=== PATIENT | male | born 1995 | race Caucasian/White ===

== ENCOUNTER 2024-04-07 18:14 | Emergency (ER) | payer SELFPAY ==
--- NOTE | ~2024-04-07 | CT_ITS ---
CT of the Abdomen and Pelvis: Indication: Abdominal pain Technique: 2.5 mm axial scans were obtained through the abdomen and pelvis following intravenous adm inistration of 100 cc of Omnipaque 350. Dose reduction technique was used on this scan by utilizing a utomated exposure control and iterative reconstruction technique. The dose-length product (DLP) was 2 96.87 mGy-cm. Findings: Scans through the lung bases demonstrate 4 mm right lower lobe nodule along the fissure (a xial image 7).. The liver, spleen, pancreas, gallbladder, adrenals and kidneys are within normal limits. No evidence of aortic aneurysm. No lymphadenopathy. No bowel obstruction or bowel wall thickening. There is no evidence to suggest acute appendicitis. Images through the pelvis were performed. Urinary bladder unremarkable. No pelvic mass seen. No ascit es. Impression: No acute abnormality. 4 mm right lower lobe pulmonary nodule. According to Fleischner Society criteria, for a low-risk michelle ent, no further follow-up required. For a high-risk patient, consider 12 month follow-up CT. Reviewed, dictated and finalized at [facility]. Impression: No acute abnormality. 4 mm right lower lobe pulmonary nodule. According to Fleischner Society criteri a, for a low-risk patient, no further follow-up required. For a high-risk patie nt, consider 12 month follow-up CT.
[2024-04-07 18:42] VITALS: BP 115/70; PULSE 86; RESP 18; TEMP 37.1; O2SAT 97
[2024-04-07 19:11] LABS: Basophils Percent Auto 0.5 % (0.2-1.2); Eosinophils Absolute Auto 0.1 K/mm3 (0-0.3); Hematocrit 43.6 % (42.0-52.0); Hemoglobin 15.5 g/dL (14.0-18.0); Immature Granulocyte Absolute 0.02 K/mm3 (0.00-0.031); Immature Granulocyte Percent A 0.4 % (0-0.5); Lymphocytes Absolute Auto 1.06 K/mm3 (0.9-3.2); Lymphocytes Percent Auto 18.9 % (18.3-44.2); Mean Corpuscular HGB Conc 35.6 g/dl (32-36); Mean Corpuscular Hemoglobin 32.3 pg (26-34); Mean Corpuscular Volume 90.8 fl (80-100); Mean Platelet Volume 9.9 fl (7.4-10.4); Monocytes Absolute Auto 0.9 K/mm3 (0.1-0.6); Monocytes Percent Auto 16.4 % (2.6-8.5); Neutrophils Absolute Auto 3.5 K/mm3 (1.3-6.7); Neutrophils Percent Auto 61.8 % (45.5-73.1); Platelet Count Result 141 k/mm3 (150-375); Red Cell Distribution Width 12.5 % (11.5-14.5); White Blood Count 5.6 K/mm3 (4.5-10.0)
[2024-04-07 19:19] LABS: Lactic Acid Reflex 0.7 mmol/L (0.7-2.0)
[2024-04-07 19:41] LABS: Alanine Aminotransferase 122 U/L (6-50); Albumin Level 4.1 g/dL (3.5-5.1); Alkaline Phosphatase 101 U/L (38-126); Anion Gap 6 mmol/L (4-12); Aspartate Amino Transferase 54 U/L (17-59); Bilirubin,Total 0.4 mg/dL (0.2-1.3); Blood Urea Nitrogen 9 mg/dL (9-20); Carbon Dioxide 26 mmol/L (22-30); Chloride 102 mmol/L (98-107); Estimated CRCL calculation 77 ml/min; Estimated Glomerular Filt Rate > 60; Glucose 94 mg/dL (65-110); Lipase 31 U/L (23-300); Potassium 3.3 mmol/L (3.4-5.0); Sodium 134 mmol/L (137-145)
[2024-04-07 19:47] LABS: Influenza A QL RT-PCR Negative (Negative); Influenza B QL RT-PCR Negative (Negative); RSV RNA, RT-PCR Negative (Negative); SARS-CoV-2 RNA PCR Positive (Negative)
[2024-04-07 19:48] LABS: Appearance Urine Clear (Clear); Bacteria Urine None Seen /hpf; Bilirubin Urine Negative (Negative); Blood Urine Non-Hemolyzed Trace (Negative); Color Urine Yellow (Yellow); Glucose Urine UA Negative (Negative); Ketones Urine 1+ mg/dL (Negative); Leukocyte Esterase Ur Negative LEU/UL (Negative); Nitrate Urine Negative (Negative); Non Pathogenic Casts 0-2; Protein Urine Negative (Negative); Specific Grav Ur 1.019 (1.001-1.035); Squamous Epithelial Cell Urine None Seen /hpf (Few); WBC Urine 0-5 /hpf (0-3); pH Urine 6.5 (5.0-9.0)
--- NOTE | 2024-04-07 19:50 | ED.GENADULT ---
HPI - General Adult General Chief complaint: Fever Stated complaint: fever, n/v Time Seen by Provider: 04/07/24 18:40 Source: patient Mode of arrival: ambulatory Limitations: no limitations History of Present Illness HPI narrative: Patient is a 28 y/o female who presents to the ED with multiple complaints. Patient reports he began feeling ill around 0130 am this morning. He reports chills, sweats, congestion, headaches, intermittent myalgias, N/V. Also reports pain throughout upper abdomen. Denies known fevers, cough, SOB. Denies sick contacts, has travelled recently. Denies current nausea. Related Data Allergies Allergy/AdvReac Type Severity Reaction Status Date / Time diphenhydramine Allergy Hives Verified 04/07/24 18:17 [From Benadryl] ibuprofen [From Motrin] Allergy Hives Verified 04/07/24 18:17 Penicillins Allergy Hives Verified 04/07/24 18:17 phenobarbital Allergy Hives Verified 04/07/24 18:17 Sulfa (Sulfonamide Allergy Hives Verified 04/07/24 18:17 Antibiotics) motrin Allergy Hives Uncoded 04/07/24 18:17 Review of Systems Review of Systems: CONSTITUTIONAL: See HPI. ENT: See HPI. CARDIOVASCULAR: Denies chest pain RESPIRATORY: Denies cough or dyspnea. GASTROINTESTINAL: See HPI. MUSCULOSKELETAL: Reports myalgia. NEUROLOGIC: See HPI All systems reviewed & are unremarkable except as noted in HPI and below Exam Narrative: GENERAL: Well appearing, well-nourished, non-toxic, in no acute distress. HEAD: Normocephalic, atraumatic. RESPIRATORY: Airway patent, respirations nonlabored. Clear to auscultation bilaterally, no rales, rhonchi, wheezing. CARDIOVASCULAR: Regular rate and rhythm ABDOMINAL: Soft, mild tenderness and left upper quadrant, epigastric region, no rebound, nondistended. Normoactive BS. MUSCULOSKELETAL: Moves all extremities. No gross deformities. SKIN: Warm, dry, normal color. NEURO: A&O X3. Speech clear. Cranial nerves II-XII grossly intact. Steady gait. No ataxic movements. PSYCHIATRIC: Appropriate mood and affect. Normal interaction. Course Vital Signs Vital signs: Vital Signs Temperature 98.7 F 04/07/24 18:42 Pulse Rate 86 04/07/24 18:42 Respiratory Rate 18 04/07/24 18:42 Blood Pressure 115/70 04/07/24 18:42 Pulse Oximetry 97 04/07/24 18:42 Oxygen Delivery Room Air 04/07/24 18:42 Temperature 98.7 F 04/07/24 18:42 Pulse Rate 86 04/07/24 18:42 Respiratory Rate 18 04/07/24 18:42 Blood Pressure 115/70 04/07/24 18:42 Pulse Oximetry 97 04/07/24 18:42 Oxygen Delivery Room Air 04/07/24 18:42 Medical Decision Making MDM Narrative Medical decision making narrative: Patient presented to ED with multiple complaints, congestion, nausea, vomiting, myalgias, abdominal pain, cold sweats. Vital signs are stable upon arrival. Patient is afebrile here. Denied known fevers at home. Basic laboratory studies are unremarkable. No leukocytosis or anemia. CMP with potassium 3.3. Oral replacement ordered. Creatinine 1.2. No records to compare to. Fluids ongoing. Lactic acid within normal limits at 0.7. Total bilirubin, AST, lipase within normal limits. ALT mildly elevated to 122. UA with 1+ ketones, no signs of infection. Patient's COVID testing resulted positive. Consistent clinical picture. CT scan of abdomen pelvis was obtained given the tenderness on exam, unremarkable. No surgical abnormality. Did show incidental pulmonary nodule, which I made patient aware of. Patient feeling better with fluids. Does now report recurrent nausea. Given Zofran. Will be discharged at this time. Discussed management of COVID-19, will prescribe Zofran for home. Advised patient to quarantine, given return precautions. He agrees with plan. Discharged in stable condition. Medical Records Medical records reviewed: Yes I reviewed the external patient's medical records. Vital Signs Vital Signs: Vital Signs Temperature 98.7 F 04/07/24 18:4
[2024-04-07 19:55] LABS: Add Urine Microscopic? YES
[2024-04-07] MEDS: DICYCLOMINE HCL 10 MG CAPSULE 20 MG PO (20:11)
[2024-04-07] MEDS: SODIUM CHLORIDE 0.9% IV 1,000 ML 999 ML IV CONT ×2 (20:12)
[2024-04-07 20:13] LABS: Magnesium 1.9 mg/dL (1.6-2.3)
[2024-04-07] MEDS: POTASSIUM CHLORIDE 20 MEQ PACKET (FOR LIQUID) PO (21:23)
[2024-04-07] MEDS: ONDANSETRON INJ 4 MG/2 ML VIAL IV PUSH (21:23)
== END 2024-04-07 22:00 | disposition home or self-care (01) ==
PROVIDERS: Emergency Provider Physician Assistant
DX: U07.1 COVID-19 (principal); R91.1 Solitary pulmonary nodule
CPT/HCPCS: 36415; 74177; 80053; 81001; 83605; 83690; 83735; 85025; 87637; 96361; 96374; 99284; A9270; J2405; J7030; Q9967

== ENCOUNTER 2024-10-28 08:22 | Emergency (ER) | payer SELFPAY ==
--- NOTE | ~2024-10-28 | XR_ITS ---
EXAMINATION: XR lumbar spine min 4V DATE: 10/28/2024 09:21 INDICATION: Low back pain radiating to the right TECHNIQUE: Anteroposterior, lateral, and bilateral oblique views of the lumbar spine, and cone-down l ateral view of the lumbosacral junction were obtained. COMPARISON: CT dated 04/07/2024 FINDINGS: Alignment is normal. Vertebral body heights are normal. Mild disc height loss at T12 and T12-L1. No p ars interarticularis defects or significant lumbar facet osteoarthritis. Sacral arches are intact. Sa croiliac joint spaces are relatively preserved. IMPRESSION: 1. Mild lower thoracic spondylosis. Lumbar spine is unremarkable. Reviewed, dictated and finalized at location [facility]
[2024-10-28 08:23] VITALS: BP 123/85; PULSE 91; RESP 18; TEMP 36.2; O2SAT 98
--- NOTE | 2024-10-28 10:08 | ED_ITS ---
HPI - Back Pain/Injury General Chief Complaint: Back Pain/Injury Stated Complaint: back pain Time Seen by Provider: 10/28/24 08:36 Source: patient Mode of arrival: ambulatory Limitations: no limitations History of Present Illness HPI Narrative: 29-year-old otherwise healthy here with the complaints of low back pain for past few days. Patient states that he had an unresponsive episode and sustained a fall 4 days ago was taken to [place]. Patient states he had a pretty extensive workup except for x-ray of his lower back. He was given pain pill and was discharged home. His states that he continues to have pain in the lower back increases with movement. Denies any bladder or bowel incontinence. He also wants work note as he was unable to go to work today. MD elicited complaint: back pain and fall Pertinent past history: recent trauma Onset (ago): day(s) (4) Timing: constant Severity: moderate Quality: aching Location: lumbar spine Radiation: none Exacerbating factors: movement Relieving factors: none Associated symptoms: denies other symptoms Related Data Allergies Allergy/AdvReac Type Severity Reaction Status Date / Time diphenhydramine (From Allergy Hives Verified 10/28/24 08:26 Benadryl) ibuprofen (From Motrin) Allergy Hives Verified 10/28/24 08:26 Penicillins Allergy Hives Verified 10/28/24 08:26 phenobarbital Allergy Hives Verified 10/28/24 08:26 Sulfa (Sulfonamide Allergy Hives Verified 10/28/24 08:26 Antibiotics) motrin Allergy Hives Uncoded 10/28/24 08:26 Review of Systems Review of Systems: All systems reviewed & are unremarkable except as noted in HPI and below Constitutional: Constitutional: Reports no additional constitutional complaints Eyes: Eyes: Reports no additional eye complaints ENT: Reports system reviewed and no additional complaints, except as documented Cardiovascular: Cardiovascular: Reports no additional cardiovascular complaints Respiratory: Respiratory: Reports no additional respiratory complaints Gastrointestinal: Gastrointestinal: Reports no additional gastrointestinal complaints Musculoskeletal: Musculoskeletal: Reports no additional musculoskeletal complaints Integumentary/Breasts: Skin/Breast: Reports system reviewed and no additional complaints, except as docu Neurologic: Reports system reviewed and no additional complaints, except as documented Endocrine: Endocrine: Reports no additional endocrine complaints Allergic/Immunologic: Allergic/Immunologic: Reports no additional allergic/immunologic complaints Exam Narrative: GENERAL: Well-appearing, well-nourished, and in no acute distress. HEAD: Normocephalic, atraumatic. EYES: PERRLA and EOMI NECK: Supple. CHEST: Clear to auscultation. No respiratory distress. HEART: Regular rate and rhythm. No murmur heard. Normal peripheral pulses. ABDOMEN: Soft, nontender, nondistended, normal active bowel sounds. EXTREMITIES: Normal range of motion. No edema. Examination of his back shows no vertebral point tenderness on no step-off, has Lidoderm patch on the right side SKIN: Warm, dry, no rash. NEURO: No focal deficits. Alert and oriented x3. PSYCH: Normal mood and affect. Course Course Emergency Course: Patient was sleeping comfortably on the stretcher in no discomfort informed about his x-ray findings. I advised him to continue his home medication, follow with his primary doctor Vital Signs Vital signs: Vital Signs Temperature 36.2 C L 10/28/24 08:23 Pulse Rate 91 10/28/24 08:23 Respiratory Rate 18 10/28/24 08:23 Blood Pressure 123/85 10/28/24 08:23 Pulse Oximetry 98 10/28/24 08:23 Oxygen Delivery Room Air 10/28/24 08:23 Temperature 36.2 C L 10/28/24 08:23 Pulse Rate 91 10/28/24 08:23 Respiratory Rate 18 10/28/24 08:23 Blood Pressure 123/85 10/28/24 08:23 Pulse Oximetry 98 10/28/24 08:23 Oxygen Delivery Room Air 10/28/24 08:23 MDM - Back Pain/Injury Differential Diagnosis Differential diagnosis: Likely lumbar radiculopathy and strain of lumbar region Medical Records Attestation: I reviewed the patient's medical records. Imaging Data Radiologist's impression: ITS Impressions Lumbar Spine X-Ray 10/28/24 09:37 IMPRESSION: 1. Mild lower thoracic spondylosis. Lumbar spine is unremarkable. Discharge Plan Discharge Clinical Impression: Low back pain Qualifiers: Chronicity: acute Back pain laterality: right Sciatica presence: without sciatica Qualified Code(s): M54.50 - Low back pain, unspecified Patient Disposition: Home, Self-Care Condition: Stable Instructions: Acute Low Back Pain (ED) Patient Language: Bulgarian Prescriptions: New cyclobenzaprine 5 mg tablet 5 mg PO HS PRN (Reason: muscle spasm) Qty: 14 0RF No Action ondansetron 4 mg tablet,disintegrating 4 mg PO Q8H PRN (Reason: nausea and vomiting) Qty: 15 0RF Follow-up/Referrals: UNKNOWN,DOCTOR [Primary Care Provider] - Ej Morgan MD [Physician] - Stand Alone Forms: Work/School Release IP Time of Disposition: 10:16
--- OUTSIDE RECORDS SUMMARY | 2024-11-04 13:02 | XMS_ITS | Clinical Summary ---
Author Organization [facility] Address [address] [place] [address] Care Team Providers Care Bonderizer Operator Name Role Phone Unknown, Notinfile Primary Care Provider Unavail able Allergies Active Allergy Reactions Criticality Noted Date Comments Diphenhydramine Anaphylaxis High 10/24/2024 Ibuprofen Unknown 10/24/2024 Penicillins Unknown 10/24/2024 Phenobarbital Unknown 10/24/2024 Sulfa Unknown 10/24/2024 Medications cyclobenzaprine (FLEXERIL) 10 mg tablet Take 1 tablet (10 mg total) by mouth 2 (two) times a day as needed for muscle spasms 20 tablet 10/25/2024 Active lidocaine (LIDODERM) 5 % Place 1 patch on the skin daily Remove & discard patch within 12 hours or as directed by MD. 15 patch 10/25/2024 11/24/19 25 Active acetaminophen (TYLENOL) 500 mg tabletIndicatio ns:Pain Take 2 tablets (1,000 mg total) by mouth every 6 (six) hours as needed for pain 30 tablet 10/25/2024 Active Encounters Date Type Department Care Team Description 10/25/2024 12:26 AM PRODUCT DEVELOPMENT TECHNICIAN - 10/25/2024 6:05 AM PRODUCT DEVELOPMENT TECHNICIAN [facility] Emergency Department [address] [place] [address] Krunal Morrison MD PhD Henrry Fischer MD Lumbar strain, initial encounter (Primary Dx) Discharge Disposition: Discharge to home or self care from Last 3 Months Social History Tobacco Use Types Packs/Day Years Used Date Smoking Tobacco: Never Assessed Personal Safety Answer Date Recorded Have you ever been in or are you currently in a harmful physical or emotional relationship or is someone making you feel afraid or unsafe? Denies 10/24/2024 Sex and Gender Information Value Date Recorded Sex Assigned at Not on file Legal Sex Male 8:44 PM PRODUCT DEVELOPMENT TECHNICIAN Gender Identity Not on file Sexual Orientation Not on file Last Filed Vital Signs Vital Sign Reading Time Taken Comments Blood Pressure 114/79 10/25/2024 2:00 AM PRODUCT DEVELOPMENT TECHNICIAN Pulse 76 10/25/2024 2:00 AM PRODUCT DEVELOPMENT TECHNICIAN Temperature 36.9 ??C (98.4 ??F) 10/25/2024 2:53 AM CS T Respiratory Rate 17 10/25/2024 2:00 AM PRODUCT DEVELOPMENT TECHNICIAN Oxygen Saturation 94% 10/25/2024 2:00 AM PRODUCT DEVELOPMENT TECHNICIAN Inhaled Oxygen Concentration - - Weight 72.6 kg (160 lb) 10/24/2024 8:50 PM PRODUCT DEVELOPMENT TECHNICIAN Height 177.8 cm (5' 10 ) 10/24/2024 8:50 PM PRODUCT DEVELOPMENT TECHNICIAN Body Mass Index 22.96 10/24/2024 8:50 PM PRODUCT DEVELOPMENT TECHNICIAN Plan of Treatment Health Maintenance Due Date Last Done Comments Depression Screening 1993 Hepatitis C Screening 1993 DTaP/Tdap/Td Vaccine (1 - Tdap) 2004 Varicella Vaccines (1 of 2 - 13+ 2-dose series) 2006 Hepatitis B Screening 2011 Regular Well Visit/Exam 18-64 2011 Influenza Vaccine (#1) 2024 HPV Vaccines Aged Out No longer eligi ble based on patient's age to complete this topic Pneumococcal vaccine <65 Aged Out No longer eligible based on patient's age to complete this topic Procedures Procedure Name Priority Date/Time Associated Diagnosis Comments URINALYSIS, MICROSCOPIC ONLY STAT 10/25/2024 3:07 AM PRODUCT DEVELOPMENT TECHNICIAN DRUGS OF ABUSE SCREEN, URINE WITHOUT CONFIRMATION STAT 10/25/2024 3:07 AM PRODUCT DEVELOPMENT TECHNICIAN URINALYSIS AND REFLEX TO MICROSCOPIC AND CULTURE STAT 10/25/2024 3:07 AM PRODUCT DEVELOPMENT TECHNICIAN EGFR STAT 10/25/2024 3:02 AM PRODUCT DEVELOPMENT TECHNICIAN DIFFERENTIAL AUTO STAT 10/25/2024 3:0 2 AM PRODUCT DEVELOPMENT TECHNICIAN LIPASE STAT 10/25/2024 3:02 AM PRODUCT DEVELOPMENT TECHNICIAN CRP (ACUTE PHASE) STAT 10/25/2024 3:0 2 AM PRODUCT DEVELOPMENT TECHNICIAN ERYTHROCYTE SEDIMENTATION RATE STAT 10/25/2024 3:02 AM PRODUCT DEVELOPMENT TECHNICIAN CBC WITH AUTO DIFFERENTIAL STAT 10/25/2024 3:02 AM PRODUCT DEVELOPMENT TECHNICIAN BASIC METABOLIC PANEL STAT 10/25/2024 3:02 AM PRODUCT DEVELOPMENT TECHNICIAN from Last 3 Months Results * (ABNORMAL) Urinalysis reflex to microscopic and culture Urine (10/25/2024 3:07 AM PRODUCT DEVELOPMENT TECHNICIAN) Color, ur Straw Yellow Clarity, ur Clear Clear [facility] Specific gravity, ur 1.007 1.003 - 1.030 [facility] pH, urine 6.0 [facility] Comment: Interpretive Data ? Urine pH is affected by diet, medications, systemic acid-base disturbances, and renal tubular function. ??pH may affect urinary stone formation. ??For example, urine pH below 6.0 may help reduce the tendency for calcium phosphate stones and pH greater than 6.0 may reduce the tendency for uric acid stone formation. Source: [facility] Current Interpretive Data was last revised on 2017 Protein, ur ql Negative Negative [facility] Glucose, ur ql Negative Negative [facility] Ketones, ur 2+(A) Negative [facility] Bilirubin, ur Negative Negative [facility] Blood, ur Trace(A) Negative [facility] Urobilinogen, ur <2.0 <2.0 mg/dL [facility] Nitrite, ur Negative Negative [facility] Leukocyte esterase, ur Negative Negative [facility] UA reflex comment Reflex to microscopic UA will be performed. [facility] Urine 10/25/2024 3:07 AM PRODUCT DEVELOPMENT TECHNICIAN 10/25/2024 3:17 AM PRODUCT DEVELOPMENT TECHNICIAN us Craig Huertas MD LAB MICROBIOLOGY - GENERAL O LATONYA Final Result [facility] Department [place] [address] * (ABNORMAL) Drugs of Abuse Screen, Urine without Confirmation (10/25/2024 3:07 AM PRODUCT DEVELOPMENT TECHNICIAN) [facility] Amphetamine, ur Not Detected CutOff 500ng/mL Comment: Interpretive Data - Amphetamines: ??Samples containing greater than 500 ng/mL d-methamphetamine ??or other cross-reacting amphetamine compounds are reported as positive. ??Amphetamine immunoassays are subject to significant false positive rates due to cross-reactivity of non-amphetamine drugs. Confirmatory testing required for definitive results. Current Interpretive Data was last reviewed 2023. Barbiturates, ur Not Detected CutOff 200ng/mL [facility] Comment: Interpretive Data - Barbiturates: ??Samples containing greater than 200 ng/mL secobarbital or other cross-reacting barbiturate compounds are reported as positive. ??False positive and false negative results are possible. Confirmatory testing required for definitive results. Current Interpretive Data was last reviewed 2023. Benzodiazepines, ur Not Detected CutOff 100ng/mL [facility] Comment: Interpretive Data - Benzodiazepines: ??Samples containing greater than 100 ng/mL nordiazepam or other cross-reacting compounds are reported as positive. False positive and false negative results are possible. Confirmatory testing required for definitive results. Current Interpretive Data was last reviewed 2023. Cannabinoids, ur Screen Positive, presumptive (A) CutOff 50 ng/mL [facility] Comment: Interpretive Data - Cannabinoids: ??Samples containing greater than 50 ng/mL delta-9 THC -COOH or other cross-reacting compounds are reported as positive. ??False positive and false negative results are possible. ??Confirmatory testing required for definitive results. Current Interpretive Data was last reviewed 2023. Cocaine, ur Not Detected CutOff 150ng/mL [facility] Comment: Interpretive Data - Cocaine: ??Samples containing greater than 150 ng/mL benzoylecgonine or other cross-reacting compounds are reported as positive. False positive and false negative results are possible. Confirmatory testing required for definitive results. Current Interpretive Data was last reviewed 2023. Fentanyl, Ur Not Detected CutOff 5 ng/mL [facility] Comment: Interpretive Data - Fentanyl: ?? Samples containing greater than 5 ng/mL norfentanyl, fentanyl, or other cross-reacting fentanyl compounds are reported as positive. False positive and false negative results are possible. Confirmatory testing required for definitive results. Current Interpretive Data was last reviewed 2024. Methadone, ur Not Detected CutOff 300ng/mL [facility] Comment: Interpretive Data - Methadone: ??Samples containing greater than 300 ng/mL d,l-methadone or other cross-reacting compounds are reported as positive. ??False positive and false negative results are possible. Confirmatory testing required for definitive results. Current Interpretive Data was last reviewed 2023. Opiates, ur Not Detected CutOff 300ng/mL [facility] Comment: Interpretive Data - Opiates: ??Samples containing greater than 300 ng/mL morphine or other cross-reacting compounds are reported as positive. ??False positive and false negative results are possible. Confirmatory testing required for definitive results. Current Interpretive Data was last reviewed 2023. Oxycodone, ur Not Detected CutOff 100ng/mL [facility] Comment: Interpretive Data - Oxycodone: ??Samples containing greater than 100 ng/mL oxycodone or other cross-reacting compounds are reported as ??positive. ??False positive and false negative results are possible. Confirmatory testing required for definitive results. Current Interpretive Data was last reviewed 2023. Phencyclidine, ur Not Detected CutOff 25 ng/mL [facility] Comment: Interpretive Data - Phencyclidine: ??Samples containing greater than 25 ng/mL phencyclidine or other cross-reacting compounds are reported as positive. ??False positive and false negative results are possible. Confirmatory testing required for definitive results. Current Interpretive Data was last reviewed 2023. Urine Creatinine 70 mg/dL [facility] Comment: Interpretive Data Urine Creatinine: < 10 mg/dL is extremely dilute = or > 10 but < 20 mg/dL is dilute = or > 20 mg/dL is normal Current Interpretive Data was last revised on 2018. Urine 10/25/2024 3:07 AM PRODUCT DEVELOPMENT TECHNICIAN 10/25/2024 3:23 AM PRODUCT DEVELOPMENT TECHNICIAN Narrative [facility] - 10/25/2024 3:56 AM PRODUCT DEVELOPMENT TECHNICIAN Drug of Abuse screening is performed by immunoassay for medical purposes only. ??This is not to be used for Pain Management purposes. Craig Huertas MD LAB URINE ORDERABLES Final R esult Performing Organization Address [facility] de Phone Number [facility] [place] [address] * (ABNORMAL) Urinalysis, microscopic only (10/25/2024 3:07 AM PRODUCT DEVELOPMENT TECHNICIAN) WBC, ur 0-5 0 - 5 /HPF RBC, ur 0-2 0 - 2 /HPF [facility] Mucous, ur Present(A) [facility] Culture Reflex Comment Reflex conditions for urine culture (WBC >10) not met. [facility] Urine 10/25/2024 3:07 AM PRODUCT DEVELOPMENT TECHNICIAN 10/25/2024 3:17 AM PRODUCT DEVELOPMENT TECHNICIAN us Craig Huertas MD LAB URINE ORDERABLES Final R [email or web address] Performing Organization Address [facility] [place] [address] * eGFR (10/25/2024 3:02 AM PRODUCT DEVELOPMENT TECHNICIAN) eGFR 90 >=60 mL/min/1. 73 m2 Comment: Interpretive Data Reference Interval Normal ?>/= 90 mL/min/1.73m2 Mildly decreased* ? 60 - 89 mL/min/1.73m2 Mildly to moderately decreased ?45 - 59 mL/min/1.73m2 Moderately to severely decreased ??30 - 44 mL/min/1.73m2 Severely decreased ?15 - 29 mL/min/1.73m2 Kidney Failure ?< 15 ??mL/min/1.73m2 *Relative to young adult level Estimated glomerular filtration rate is determined by the 2020 CKD-EPI equation recommended by the National Kidney Foundation (A Unifying Approach to GFR Estimation: Recommendations of the NKF-ASK Task Force on Reassessing the Inclusion of Race in Diagnosing Kidney Disease, JASN 202). The CKD-EPI equation should not be used for patients with unstable renal function and has not been validated in children and those over 70. Current interpretive data was last reviewed 2021. Blood 10/25/2024 3:02 AM PRODUCT DEVELOPMENT TECHNICIAN 10/25/2024 3:23 AM PRODUCT DEVELOPMENT TECHNICIAN us Craig Huertas MD LAB BLOOD ORDERABLES Final R esult [facility] Department [place] [address] * (ABNORMAL) Differential, auto (10/25/2024 3:02 AM PRODUCT DEVELOPMENT TECHNICIAN) Neutrophil abs 4.4 1.5 - 6.5 K/cumm Imm gran abs 0.0 0.0 - 0.1 K/cumm [facility] Lymphocyte abs 0.7(L) 0.8 - 3.3 K/cumm [facility] Monocyte abs 0.8 0.2 - 0.8 K/cumm [facility] Eosinophil abs 0.0 0.0 - 0.5 K/cumm [facility] Basophil abs 0.0 0.0 - 0.1 K/cumm [facility] Neutrophil pct 74.6 % [facility] Comment: Interpretive Data Percent cell count reference ranges are not reported, since discordance with absolute values may lead to misinterpretation of CBC data. Current Interpretive Data was last revised on 2018. Imm gran pct 0.5 % [facility] Comment: Interpretive Data Percent cell count reference ranges are not reported, since discordance with absolute values may lead to misinterpretation of CBC data. Current Interpretive Data was last revised on 2018. Lymphocyte pct 11.6 % [facility] Comment: Interpretive Data Percent cell count reference ranges are not reported, since discordance with absolute values may lead to misinterpretation of CBC data. Current Interpretive Data was last revised on 2018. Monocyte pct 12.8 % [facility] Comment: Interpretive Data Percent cell count reference ranges are not reported, since discordance with absolute values may lead to misinterpretation of CBC data. Current Interpretive Data was last revised on 2018. Eosinophil pct 0.3 % [facility] Comment: Interpretive Data Percent cell count reference ranges are not reported, since discordance with absolute values may lead to misinterpretation of CBC data. Current Interpretive Data was last revised on 2018. Basophil pct 0.2 % [facility] Comment: Interpretive Data Percent cell count reference ranges are not reported, since discordance with absolute values may lead to misinterpretation of CBC data. Current Interpretive Data was last revised on 2018. Blood 10/25/2024 3:02 AM PRODUCT DEVELOPMENT TECHNICIAN 10/25/2024 3:23 AM PRODUCT DEVELOPMENT TECHNICIAN us Craig Huertas MD LAB BLOOD ORDERABLES Final R esult [facility] Department [place] [address] * CBC with auto differential (10/25/2024 3:02 AM PRODUCT DEVELOPMENT TECHNICIAN) WBC 5.8 3.8 - 9.9 K/cumm Hgb 14.3 13.0 - 17.5 g/dL [facility] Hct 40.5 38.9 - 50.3 % [facility] Plt 178 150 - 400 K/cumm [facility] MPV 10.2 9.1 - 12.3 fL [facility] RBC 4.50 4.30 - 5.80 M/cumm [facility] MCV 90.0 81.3 - 96.4 fL [facility] MCH 31.8 27.1 - 33.3 pg [facility] MCHC 35.3 32.3 - 35.7 g/dL [facility] RDW CV 12.2 11.1 - 14.9 % [facility] RDW SD 40.4 35.7 - 48.1 fL [facility] NRBC abs 0.00 0.00 - 0.01 K/cumm [facility] Blood 10/25/2024 3:02 AM PRODUCT DEVELOPMENT TECHNICIAN 10/25/2024 3:23 AM PRODUCT DEVELOPMENT TECHNICIAN us Craig Huertas MD LAB BLOOD ORDERABLES Final R esult [facility] [place] [address] * Erythrocyte sedimentation rate (10/25/2024 3:02 AM PRODUCT DEVELOPMENT TECHNICIAN) Erythrocyte sedimentation rate 8 1 - 15 mm/hr Blood 10/25/2024 3:02 AM PRODUCT DEVELOPMENT TECHNICIAN 10/25/2024 3:23 AM PRODUCT DEVELOPMENT TECHNICIAN us Craig Huertas MD LAB BLOOD ORDERABLES Final R esult Performing Organization Address [facility] Co de Phone Number [facility] [place] [address] * CRP (acute phase) (10/25/2024 3:02 AM PRODUCT DEVELOPMENT TECHNICIAN) CRP 6.1 <=10.0 mg/L Blood 10/25/2024 3:02 AM PRODUCT DEVELOPMENT TECHNICIAN 10/25/2024 3:23 AM PRODUCT DEVELOPMENT TECHNICIAN us Craig Huertas MD LAB BLOOD ORDERABLES Final R esult Performing Organization Address [facility] Co de Phone Number [facility] [place] [address] * Lipase (10/25/2024 3:02 AM PRODUCT DEVELOPMENT TECHNICIAN) Lipase 12 10 - 99 Units/L Blood 10/25/2024 3:02 AM PRODUCT DEVELOPMENT TECHNICIAN 10/25/2024 3:23 AM PRODUCT DEVELOPMENT TECHNICIAN us Craig Huertas MD LAB BLOOD ORDERABLES Final R esult Performing Organization Address [facility]/ZIP Co de Phone Number [facility] Department [place] [address] * Basic metabolic panel (10/25/2024 3:02 AM PRODUCT DEVELOPMENT TECHNICIAN) Sodium 140 135 - 145 mmol/L Potassium, pl 3.5 3.3 - 4.9 mmol/L [facility] Chloride 102 97 - 110 mmol/L [facility] CO2 26 22 - 32 mmol/L [facility] Anion gap 12 2 - 15 mmol/L [facility] BUN 7 6 - 25 mg/dL [facility] Creatinine 1.12 0.80 - 1.30 mg/dL [facility] Glucose 100 70 - 199 mg/dL [facility] Comment: Interpretive Data Fasting glucose >/= 126 mg/dl is diagnostic for diabetes. ?? Fasting is defined as no caloric intake for at least 8 hours. Fasting glucose between 100 mg/dl to 125 mg/dl is diagnostic of prediabetes. In a patient with classic symptoms of hyperglycemia or hyperglycemic crisis, a random glucose >/= 200 mg/dl is diagnostic for diabetes. In the absence of unequivocal hyperglycemia, results should be confirmed by repeat testing. The classification and Diagnosis of Diabetes Diabetes Care 202; 46: S19-S40. Current interpretive data was last revised 2022. Calcium 9.1 8.5 - 10.3 mg/dL [facility] Blood 10/25/2024 3:02 AM PRODUCT DEVELOPMENT TECHNICIAN 10/25/2024 3:23 AM PRODUCT DEVELOPMENT TECHNICIAN us Craig Huertas MD LAB BLOOD ORDERABLES Final R esult Performing Organization Address [facility]/ZIP Co de Phone Number [facility] Department [place] [address] from Last 3 Months Care Teams Bonderizer Operator Relationship Specialty Start Date End Date Unknown, Notinfile PCP - General 10/25/24
--- OUTSIDE RECORDS SUMMARY | 2024-11-04 13:02 | XMS_ITS | Referral Summary ---
Author Organization [facility] Address [address] [place] [address] Care Team Providers Care Coffee Shop Manager Name Role Phone Unknown, Notinfile Primary Care Provider Unavail able Encounters Date Type Department Care Team Description 10/25/2024 12:26 AM DEVELOPMENT ADVISOR - 10/25/2024 6:05 AM DEVELOPMENT ADVISOR Emergency [facility] Emergency Department [address] [place] [address] Krunal Morrison MD PhD Fischer, Henrry Oliver MD Lumbar strain, initial encounter (Primary Dx) Discharge Disposition: Discharge to home or self care from Last 3 Months Allergies Active Allergy Reactions Criticality Noted Date [...] within 12 hours or as directed by . 15 patch 10/25/2024 11/24/19 25 Active acetaminophen (TYLENOL) 500 mg tabletIndicatio ns:Pain Take 2 tablets (1,000 mg total) by mouth every 6 (six) hours as needed for pain 30 tablet 10/25/2024 Active Social History Tobacco Use Types Packs/Day Years Used Date Smoking Tobacco: Never Assessed Personal Safety Answer Date Recorded Have you ever been in or are you currently in a harmful physical or emotional relationship or is someone making you feel afraid or unsafe? Denies 10/24/2024 Sex and Gender Information Value Date Recorded Sex Assigned at Not on file Legal Sex Male 8:44 PM DEVELOPMENT ADVISOR Gender Identity Not on file Sexual Orientation Not on file Last Filed Vital Signs Vital Sign Reading Time Taken Comments Blood Pressure 114/79 10/25/2024 2:00 AM DEVELOPMENT ADVISOR Pulse 76 10/25/2024 2:00 AM DEVELOPMENT ADVISOR Temperature 36.9 ??C (98.4 ??F) 10/25/2024 2:53 AM CS T Respiratory Rate 17 10/25/2024 2:00 AM DEVELOPMENT ADVISOR Oxygen Saturation 94% 10/25/2024 2:00 AM DEVELOPMENT ADVISOR Inhaled Oxygen Concentration - - Weight 72.6 kg (160 lb) 10/24/2024 8:50 PM DEVELOPMENT ADVISOR Height 177.8 cm (5' 10 ) 10/24/2024 8:50 PM DEVELOPMENT ADVISOR Body Mass Index 22.96 10/24/2024 8:50 PM DEVELOPMENT ADVISOR Plan of Treatment Not on file Procedures Procedure Name Priority Date/Time Associated Diagnosis Comments URINALYSIS, MICROSCOPIC ONLY STAT 10/25/2024 3:07 AM DEVELOPMENT ADVISOR DRUGS OF ABUSE SCREEN, URINE WITHOUT CONFIRMATION STAT 10/25/2024 3:07 AM DEVELOPMENT ADVISOR URINALYSIS AND REFLEX TO MICROSCOPIC AND CULTURE STAT 10/25/2024 3:07 AM DEVELOPMENT ADVISOR EGFR STAT 10/25/2024 3:02 AM DEVELOPMENT ADVISOR DIFFERENTIAL AUTO STAT 10/25/2024 3:0 2 AM DEVELOPMENT ADVISOR LIPASE STAT 10/25/2024 3:02 AM DEVELOPMENT ADVISOR CRP (ACUTE PHASE) STAT 10/25/2024 3:0 2 AM DEVELOPMENT ADVISOR ERYTHROCYTE SEDIMENTATION RATE STAT 10/25/2024 3:02 AM DEVELOPMENT ADVISOR CBC WITH AUTO DIFFERENTIAL STAT 10/25/2024 3:02 AM DEVELOPMENT ADVISOR BASIC METABOLIC PANEL STAT 10/25/2024 3:02 AM DEVELOPMENT ADVISOR from Last 3 Months Results * (ABNORMAL) Urinalysis reflex to microscopic and culture Urine (10/25/2024 3:07 AM DEVELOPMENT ADVISOR) Color, ur Straw Yellow Clarity, ur Clear Clear [facility] Specific gravity, ur 1.007 1.003 - 1.030 [facility] pH, urine 6.0 [facility] Comment: Interpretive Data ? Urine pH is affected by diet, medications, systemic acid-base disturbances, and renal tubular function. ??pH may affect urinary stone formation. ??For example, urine pH below 6.0 may help reduce the tendency for calcium phosphate stones and pH greater than 6.0 may reduce the tendency for uric acid stone formation. Source: [facility] [place] Current Interpretive Data was last revised on 2017 Protein, ur ql Negative Negative [facility] Glucose, ur ql Negative Negative [facility] Ketones, ur 2+(A) Negative [facility] Bilirubin, ur Negative Negative [facility] Blood, ur Trace(A) Negative [facility] Urobilinogen, ur <2.0 <2.0 mg/dL [facility] Nitrite, ur Negative Negative [facility] Leukocyte esterase, ur Negative Negative [facility] UA reflex comment Reflex to microscopic UA will be performed. [facility] Urine 10/25/2024 3:07 AM DEVELOPMENT ADVISOR 10/25/2024 3:17 AM DEVELOPMENT ADVISOR us Craig Huertas MD LAB MICROBIOLOGY - GENERAL O RDERABLES Final Result [facility] Department [place] [address] * (ABNORMAL) Drugs of Abuse Screen, Urine without Confirmation (10/25/2024 3:07 AM DEVELOPMENT ADVISOR) Amphetamine, ur Not Detected [facility] 500ng/mL Comment: Interpretive Data - Amphetamines: ??Samples containing greater than 500 ng/mL d-methamphetamine ??or other cross-reacting amphetamine compounds are reported as positive. ??Amphetamine immunoassays are subject to significant false positive rates due to cross-reactivity of non-amphetamine drugs. Confirmatory testing required for definitive results. Current Interpretive Data was last reviewed 2023. Barbiturates, ur Not Detected CutOff 200ng/mL [facility] Comment: Interpretive Data - Barbiturates: ??Samples containing greater than 200 ng/mL secobarbital or other cross-reacting barbiturate compounds are reported as positive. ??False positive and false negative results are possible. Confirmatory testing required for definitive results. Current Interpretive Data was last reviewed 2023. Benzodiazepines, ur Not Detected CutOff 100ng/mL [facility] Comment: Interpretive Data - Benzodiazepines: ??Samples containing greater than 100 ng/mL nordiazepam or other cross-reacting compounds are reported as positive. False positive and false negative results are possible. Confirmatory testing required for definitive results. Current Interpretive Data was last reviewed 2023. Cannabinoids, ur Screen Positive, presumptive (A) CutOff 50 ng/mL [facility] Comment: Interpretive Data - Cannabinoids: ??Samples containing greater than 50 ng/mL delta-9 THC -COOH or other cross-reacting compounds are reported as positive. ??False positive and false negative results are possible. ??Confirmatory testing required for definitive results. Current Interpretive Data was last reviewed 2023. Cocaine, ur Not Detected CutOff 150ng/mL [facility] Comment: Interpretive Data - Cocaine: ??Samples containing greater than 150 ng/mL benzoylecgonine or other cross-reacting compounds are reported as positive. False positive and false negative results are possible. Confirmatory testing required for definitive results. Current Interpretive Data was last reviewed 2023. Fentanyl, Ur Not Detected CutOff 5 ng/mL [facility] Comment: Interpretive Data - Fentanyl: ?? Samples containing greater than 5 ng/mL norfentanyl, fentanyl, or other cross-reacting fentanyl compounds are reported as positive. False positive and false negative results are possible. Confirmatory testing required for definitive results. Current Interpretive Data was last reviewed 2024. Methadone, ur Not Detected CutOff 300ng/mL [facility] Comment: Interpretive Data - Methadone: ??Samples containing greater than 300 ng/mL d,l-methadone or other cross-reacting compounds are reported as positive. ??False positive and false negative results are possible. Confirmatory testing required for definitive results. Current Interpretive Data was last reviewed 2023. Opiates, ur Not Detected CutOff 300ng/mL [facility] Comment: Interpretive Data - Opiates: ??Samples containing greater than 300 ng/mL morphine or other cross-reacting compounds are reported as positive. ??False positive and false negative results are possible. Confirmatory testing required for definitive results. Current Interpretive Data was last reviewed 2023. Oxycodone, ur Not Detected CutOff 100ng/mL [facility] Comment: Interpretive Data - Oxycodone: ??Samples containing greater than 100 ng/mL oxycodone or other cross-reacting compounds are reported as ??positive. ??False positive and false negative results are possible. Confirmatory testing required for definitive results. Current Interpretive Data was last reviewed 2023. Phencyclidine, ur Not Detected CutOff 25 ng/mL [facility] Comment: Interpretive Data - Phencyclidine: ??Samples containing greater than 25 ng/mL phencyclidine or other cross-reacting compounds are reported as positive. ??False positive and false negative results are possible. Confirmatory testing required for definitive results. Current Interpretive Data was last reviewed 2023. Urine Creatinine 70 mg/dL [facility] Comment: Interpretive Data Urine Creatinine: < 10 mg/dL is extremely dilute = or > 10 but < 20 mg/dL is dilute = or > 20 mg/dL is normal Current Interpretive Data was last revised on 2018. Urine 10/25/2024 3:07 AM DEVELOPMENT ADVISOR 10/25/2024 3:23 AM DEVELOPMENT ADVISOR Narrative [facility] - 10/25/2024 3:56 AM DEVELOPMENT ADVISOR Drug of Abuse screening is performed by immunoassay for medical purposes only. ??This is not to be used for Pain Management purposes. us Craig Huertas MD LAB URINE ORDERABLES Final R esult [facility] Department [place] [address] * (ABNORMAL) Urinalysis, microscopic only (10/25/2024 3:07 AM DEVELOPMENT ADVISOR) WBC, ur 0-5 0 - 5 /HPF RBC, ur 0-2 0 - 2 /HPF [facility] Mucous, ur Present(A) [facility] Culture Reflex Comment Reflex conditions for urine culture (WBC >10) not met. [facility] Urine 10/25/2024 3:07 AM DEVELOPMENT ADVISOR 10/25/2024 3:17 AM DEVELOPMENT ADVISOR us Craig Huertas MD LAB URINE ORDERABLES Final R esult [facility] Department [place] [address] * eGFR (10/25/2024 3:02 AM DEVELOPMENT ADVISOR) eGFR 90 >=60 mL/min/1. 73 m2 Comment: [...] last reviewed 2021. Blood 10/25/2024 3:02 AM DEVELOPMENT ADVISOR 10/25/2024 3:23 AM DEVELOPMENT ADVISOR us Craig Huertas MD LAB BLOOD ORDERABLES Final R esult [facility] Department [place] [address] * (ABNORMAL) Differential, auto (10/25/2024 3:02 AM DEVELOPMENT ADVISOR) Neutrophil abs 4.4 1.5 - 6.5 K/cumm Imm gran abs 0.0 0.0 - 0.1 K/cumm [facility] Lymphocyte abs 0.7(L) 0.8 - 3.3 K/cumm [facility] Monocyte abs 0.8 0.2 - 0.8 K/cumm [facility] Eosinophil abs 0.0 0.0 - 0.5 K/cumm [facility] Basophil abs 0.0 0.0 - 0.1 K/cumm [facility] Neutrophil pct 74.6 % [facility] Comment: Interpretive Data Percent cell count reference ranges are not reported, since discordance with absolute values may lead to misinterpretation of CBC data. Current Interpretive Data was last revised on 2018. Imm gran pct 0.5 % [facility] Comment: Interpretive Data Percent cell count reference ranges are not reported, since discordance with absolute values may lead to misinterpretation of CBC data. Current Interpretive Data was last revised on 2018. Lymphocyte pct 11.6 % [facility] Comment: Interpretive Data Percent cell count reference ranges are not reported, since discordance with absolute values may lead to misinterpretation of CBC data. Current Interpretive Data was last revised on 2018. Monocyte pct 12.8 % [facility] Comment: Interpretive Data Percent cell count reference ranges are not reported, since discordance with absolute values may lead to misinterpretation of CBC data. Current Interpretive Data was last revised on 2018. Eosinophil pct 0.3 % [facility] Comment: Interpretive Data Percent cell count reference ranges are not reported, since discordance with absolute values may lead to misinterpretation of CBC data. Current Interpretive Data was last revised on 2018. Basophil pct 0.2 % [facility] Comment: Interpretive Data Percent cell count reference ranges are not reported, since discordance with absolute values may lead to misinterpretation of CBC data. Current Interpretive Data was last revised on 2018. Blood 10/25/2024 3:02 AM DEVELOPMENT ADVISOR 10/25/2024 3:23 AM DEVELOPMENT ADVISOR us Craig Huertas MD LAB BLOOD ORDERABLES Final R esult [facility] Department [place] [address] * CBC with auto differential (10/25/2024 3:02 AM DEVELOPMENT ADVISOR) WBC 5.8 3.8 - 9.9 K/cumm Hgb 14.3 13.0 - 17.5 g/dL [facility] Hct 40.5 38.9 - 50.3 % [facility] Plt 178 150 - 400 K/cumm [facility] MPV 10.2 9.1 - 12.3 fL [facility] RBC 4.50 4.30 - 5.80 M/cumm [facility] MCV 90.0 81.3 - 96.4 fL [facility] MCH 31.8 27.1 - 33.3 pg [facility] MCHC 35.3 32.3 - 35.7 g/dL [facility] RDW CV 12.2 11.1 - 14.9 % [facility] RDW SD 40.4 35.7 - 48.1 fL [facility] NRBC abs 0.00 0.00 - 0.01 K/cumm [facility] Blood 10/25/2024 3:02 AM DEVELOPMENT ADVISOR 10/25/2024 3:23 AM DEVELOPMENT ADVISOR us Craig Huertas MD LAB BLOOD ORDERABLES Final R esult [facility] [place] [place] [address] * Erythrocyte sedimentation rate (10/25/2024 3:02 AM DEVELOPMENT ADVISOR) Pathologist [facility] [place] Erythrocyte sedimentation rate 8 1 - 15 mm/hr Blood 10/25/2024 3:02 AM DEVELOPMENT ADVISOR 10/25/2024 3:23 AM DEVELOPMENT ADVISOR us Craig Huertas MD LAB BLOOD ORDERABLES Final R esult Performing Organization Address City/[facility]/ZIP Co de Phone Number [facility] [place] [place] [address] * CRP (acute phase) (10/25/2024 3:02 AM DEVELOPMENT ADVISOR) Pathologist [facility] [place] CRP 6.1 <=10.0 mg/L Blood 10/25/2024 3:02 AM DEVELOPMENT ADVISOR 10/25/2024 3:23 AM DEVELOPMENT ADVISOR us Craig Huertas MD LAB BLOOD ORDERABLES Final R esult Performing Organization Address City/[facility]/ZIP Co de Phone Number [facility] [place] [address] * Lipase (10/25/2024 3:02 AM DEVELOPMENT ADVISOR) Pathologist [facility] [place] Lipase 12 10 - 99 Units/L Blood 10/25/2024 3:02 AM DEVELOPMENT ADVISOR 10/25/2024 3:23 AM DEVELOPMENT ADVISOR us Craig Huertas MD LAB BLOOD ORDERABLES [place] [address] * Basic metabolic panel (10/25/2024 3:02 AM DEVELOPMENT ADVISOR) Pathologist [facility] Sodium 140 135 - 145 mmol/L Potassium, pl 3.5 3.3 - 4.9 mmol/L [facility] Chloride 102 97 - 110 mmol/L [facility] CO2 26 22 - 32 mmol/L [facility] Anion gap 12 2 - 15 mmol/L [facility] BUN 7 6 - 25 mg/dL [facility] Creatinine 1.12 0.80 - 1.30 mg/dL [facility] Glucose 100 70 - 199 mg/dL [facility] Comment: Interpretive Data Fasting glucose >/= 126 [...] 2022. Calcium 9.1 8.5 - 10.3 mg/dL [facility] Blood 10/25/2024 3:02 AM DEVELOPMENT ADVISOR 10/25/2024 3:23 AM DEVELOPMENT ADVISOR us Craig Huertas MD LAB BLOOD ORDERABLES Final R esult [facility] Department [place] [address] from Last 3 Months Care Teams Coffee Shop Manager Relationship Specialty Start Date End Date Unknown, Notinfile PCP - General 10/25/24
--- OUTSIDE RECORDS SUMMARY | 2024-11-04 13:02 | XMS_ITS | Encounter Summary ---
Author Organization [facility] Healthcare Address [address] [place] [address] Care Team Providers Care Warehouse Freight Handler Name Role Phone Unknown, Notinfile Primary Care Provider Unavail able Reason for Referral * Consultation (Routine) - Pending Review Specialty Diagnoses / Procedures Referred By Amauri t Referred To Contact Internal Medicine Diagnoses Lumbar strain, initial encounter Craig Huertas MD [address] [place] [address] Phone: tel: fax: [facility] [address] [facility] [place] [address] Phone: tel: fax: Referral ID Status Reason Start Date Expiration Date Visits Requested Visits Authorized [id number] Pending Review Specialty Services Required 11/24/2025 1 1 Question Answer Please select the performing region: [facility] [[id number]] # of visits: 1 Comments Please contact the clinic to schedule your appointment if you do not receive a call by the end of the next business day. AURANT INSPECTOR Reason for Visit * Reason Comments Back Pain Encounter Details Date Type Department Care Team (Late st Contact Info) Description 10/25/2024 12:26 AM RESTAURANT INSPECTOR - 10/25/2024 6:05 AM RESTAURANT INSPECTOR Emergency [facility] Emergency Department [address] [place] [address] Krunal Morrison MD PhD [address] [facility] [address] [place] [address] Henrry Fischer MD [address] [facility] [address] [place] [address] Lumbar strain, initial encounter (Primary Dx) Discharge Disposition: Discharge to home or self care Social History Tobacco Use Types Packs/Day Years Used Date Smoking Tobacco: Never Assessed Personal Safety Answer Date Recorded Have you ever been in or are you currently in a harmful physical or emotional relationship or is someone making you feel afraid or unsafe? Denies 10/24/2024 Sex and Gender Information Value Date Recorded Sex Assigned at Not on file Legal Sex Male 8:44 PM RESTAURANT INSPECTOR Gender Identity Not on file Sexual Orientation Not on file documented as of this encounter Last Filed Vital Signs Vital Sign Reading Time Taken Comments Blood Pressure 114/79 10/25/2024 2:00 AM RESTAURANT INSPECTOR Pulse 76 10/25/2024 2:00 AM RESTAURANT INSPECTOR Temperature 36.9 ??C (98.4 ??F) 10/25/2024 2:53 AM CS T Respiratory Rate 17 10/25/2024 2:00 AM RESTAURANT INSPECTOR Oxygen Saturation 94% 10/25/2024 2:00 AM RESTAURANT INSPECTOR Inhaled Oxygen Concentration - - Weight 72.6 kg (160 lb) 10/24/2024 8:50 PM RESTAURANT INSPECTOR Height 177.8 cm (5' 10 ) 10/24/2024 8:50 PM RESTAURANT INSPECTOR Body Mass Index 22.96 10/24/2024 8:50 PM RESTAURANT INSPECTOR documented in this encounter Discharge Instructions * Discharge Instructions* Craig Huertas MD - 10/25/2024 4:05 AM RESTAURANT INSPECTOR You were seen in the Emergency Department for concerns of low back pain. Our evaluation including labs, imaging, and exam was reassuring for a non emergency cause of your symptoms. Today, you had reassuring labs and exam. I have referred you to a primary care physician to follow up with in the next2-4 weeks. Additionally, for pain you should take scheduled Tylenol 1000 mg every 6 hours for baseline pain control and use lidocaine patches as needed. For worsening breakthrough pain or muscle spasms prescribed you a medication called Flexeril. Please do not drive, operate heavy machinery, or do dangerous activities while taking Flexeril. Please follow up with the primary care physician as we discussed. Return to the ED if you have concerns for serious illness such as worsening back pain with associated weakness/sensation changes, difficulty urinating or stooling, severe abdominal pain with nausea and vomiting such that you can not keep down food or other new serious concerns. AURANT INSPECTOR AURANT INSPECTOR * Attachments The following attachments cannot be sent through Care Everywhere. * Back Sprain/Strain (Luxembourgish) * Sciatica (Luxembourgish) documented in this encounter Medications at Time of Discharge acetaminophen (TYLENOL) 500 mg tabletIndication s:Pain Take 2 tablets (1,000 mg total) by mouth every 6 (six) hours as needed for pain 30 tablet 10/25/2024 cyclobenzaprine (FLEXERIL) 10 mg tablet Take 1 tablet (10 mg total) by mouth 2 (two) times a day as needed for muscle spasms 20 tablet 10/25/2024 lidocaine (LIDODERM) 5 % Place 1 patch on the skin daily Remove & discard patch within 12 hours or as directed by . 15 patch 10/25/2024 11/24/2024 documented as of this encounter Ordered Prescriptions Prescription Sig Dispense Quantity Refills Last Filled Start Date End Date acetaminophen (TYLENOL) 500 mg tabletIndications: Pain Take 2 tablets (1,000 mg total) by mouth every 6 (six) hours as needed for pain 30 tablet 10/25/2024 lidocaine (LIDODERM) 5 % Place 1 patch on the skin daily Remove & discard patch within 12 hours or as directed by . 15 patch 10/25/2024 cyclobenzaprine (FLEXERIL) 10 mg tablet Take 1 tablet (10 mg total) by mouth 2 (two) times a day as needed for muscle spasms 20 tablet 10/25/2024 documented in this encounter Discharge Disposition Disposition Code Departure Means Destination Comment s Discharge to home or self care documented in this encounter ED Notes * Krunal Morrison MD PhD - 10/25/2024 3:58 AM CST ATTENDING NOTE 29-year-old without significant medical history presents emergency or complaining of severe right low back pain. Onset yesterday after driving for short period time. Sharp pain right low back with radiation down right lower extremity elevated foot. No numbness or tingling or weakness. Although painin right lower extremity had resolved, pain in low back persist. Worsens with movement. At onset was markedly nauseated in and nausea persisted to some degree. Denies any lower extremity numbness, tingling, weakness. No loss of control bowels or bladder. No perianal or perineal or sunitha genital numbness or tingling. Recalls lifting heavy material at work 2 and half days prior to onset of symptoms,but no pain at that time and no other trauma. Denies other symptoms of systemic illness. Takes no medicines on a regular basis. Drinks alcohol occasionally, occasionally smokes marijuana, but denies use of any other recreational drugs. Accompanied by mother in ED. Examination notable for essentially normal vital signs and no distress. Normal cardiopulmonary examination. No cervical, thoracic, or lumbar midline tenderness, but has right greater than left lumbarregion paraspinous tenderness. 5/5 strength bilateral lower extremities, proximally and distally. Grossly intact and symmetric light touch sensation in lower extremities. 2+ bilateral patellar DTRs and downgoing toes bilaterally. ASSESSMENT/PLAN: Etiologic considerations include muscle strain, radiculopathic pain/lumbar neuropathy, more distally based sciatica, kidney stone, epidural abscess or hemorrhage. Based has no risk factors for significant vascular or infectious spinal/paraspinal process. Has normal neurologic examination. Likely muscle strain, possibly with sciatica. Will check urine and if significant microscopic hematuria, consider imaging to rule out less likely diagnosis of kidney stone. Symptomatic management in ED. If substantial improvement, likely outpatient management with symptom control, monitoringfor development of any indication for 4 more aggressive diagnostic evaluation. Krunal Morrison MD PhD 10/25/24 1030 AURANT INSPECTOR * Craig Huertas MD - 10/25/2024 2:52 AM CST HPI Chief Complaint Patient presents with Back Pain Bry Navas is a 29yo M no previous past medical history who presents to ED for severe right lowback pain. Patient reports he was driving from [place] and had been in the car for about an hour when around 1:00 p.m. he started to have acute onset atraumatic severe right-sided back pain radiating down his right leg. Patient states pain was so severe that they had to pullboat engineer for him to vomit. He arrived here reportedly syncopal fall, does not remember events of this but awoke on the floor with his [id number] shaking, awake, downtime approximately 30 minutes, was unable to get up and ambulate after pain. Patient denies any red flag back symptoms: No fever/chills, night sweats, no history of chronic steroid use, no saddle anesthesia, weakness, no recent trauma prior to onset of back pain, denies IV drug use. Reports only recreational substance use his marijuana, denies cigarette smoking states that he drinks approximately 7 times a year. Patient moved here from out of town about 2-1/2 years ago, does not currently have a primary care physician, does not currently take any medi cations. 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 Denies any previous back pain like this before, denies history of back pain. Denies current dysuria, hematuria. Denies testicular swelling, testicular pain. Patient History: There are no active problems to display for this patient. No past medical history on file. No past surgical history on file. No family history on file. Social History Tobacco Use Smoking status: Not on file Smokeless tobacco: Not on file Substance and Sexual Activity Alcohol use: Not on file Drug use: Not on file Sexual activity: Not on file Social History Social History Narrative Not on file Review of Systems Review of Systems Constitutional: Negative for chills and fever. HENT: Negative for ear pain and sore throat. Eyes: Negative for pain and visual disturbance. Respiratory: Negative for cough and shortness of breath. Cardiovascular: Negative for chest pain and palpitations. Gastrointestinal: Positive for nausea and vomiting. Negative for abdominal pain. Genitourinary: Negative for dysuria and hematuria. Musculoskeletal: Positive for back pain. Negative for arthralgias. Skin: Negative for color change and rash. Neurological: Negative for seizures and syncope. All other systems reviewed and are negative. Physical Exam ED Triage Vitals Temp Pulse Resp BP SpO2 10/24/24204910/24/24204410/24/24204410/24/24204410/24/242044 37 ??C (98.6 ??F) 97 18 103/61 97 % Temp src Heart Rate Source Patient Position BP Location FiO2 (%) 10/24/242049 -- -- -- -- Oral Height Height Method Weight Weight Method 10/24/24204910/24/24204910/24/24204910/24/242049 1.778 m (5' 10 ) Stated 72.6 kg (160 lb) Stated Physical Exam Vitals and nursing note reviewed. Constitutional: General: He is not in acute distress. Appearance: He is well-developed. HENT: Head: Normocephalic and atraumatic. Eyes: Conjunctiva/sclera: Conjunctivae normal. Cardiovascular: Rate and Rhythm: Normal rate and regular rhythm. Heart sounds: No murmur heard. Pulmonary: Effort: Pulmonary effort is normal. No respiratory distress. Breath sounds: Normal breath sounds. Abdominal: Palpations: Abdomen is soft. Tenderness: There is no abdominal tenderness. Musculoskeletal: General: No swelling. Cervical back: Neck supple. Right lower leg: No edema. Left lower leg: No edema. Comments: Right low paraspinous muscle tenderness to palpation Skin: General: Skin is warm and dry. Capillary Refill: Capillary refill takes less than 2 seconds. Neurological: Mental Status: He is alert. Psychiatric: Mood and Affect: Mood normal. [facility] Medical Decision Making 29yo M no previous past medical history who presents to ED for severe right low back pain. On arrival, patient resting comfortably in bed, hemodynamically stable, afebrile, mentating appropriately. Lungs clear to auscultation bilaterally. Abdomen is soft, nontender, nondistended. Right lowparaspinous muscle tenderness to palpation. 5/5 strength in bilateral lower extremities, sensation intact, 2+ DP pulses bilaterally, neurovascularly intact. Plan for laboratory workup to rule out infection or other inflammatory process. We will give pain control with Tylenol, oxycodone. Disposition pending labs, symptom control Amount and/or Complexity of Data Reviewed Labs: ordered. Decision-making details documented in ED Course. Risk OTC drugs. Prescription drug management. Attending Summary of Care ED Course as of 10/27/24808 Time: 10/25 354 Value: Erythrocyte sedimentation rate: 8 Comment: (Reviewed) By: Craig Huertas MD Time: 10/25 357 Value: Cannabinoids, ur(!): Screen Positive, presumptive Comment: (Reviewed) By: Craig Huertas MD Time: 10/25 403 Comment: Sign out: 29 yo M with right back pain that radiates down right leg- no red flag back symptoms - symptom control and likely home By: Henrry Fischer MD Time: 10/25 410 Value: CRP: 6.1 Comment: (Reviewed) By: Craig Huertas MD Lumbar strain, initial encounter Craig Huertas MD Resident 10/27/24808 Cosigned by Krunal Morrison MD PhD at 10/29/2024 6:47 AM RESTAURANT INSPECTOR AURANT INSPECTOR AURANT INSPECTOR Associated attestation - Krunal Morrison MD PhD - 10/29/2024 6:47 AM RESTAURANT INSPECTOR I have seen and examined the patient ([id number]). I reviewed the resident's note and agree with thefindings and plan of care as documented in the resident's note unless I have documented otherwise. * Clarissa Blount, RN - 10/25/2024 12:26 AM CST Bed: ED2-19 Expected date: Expected time: Means of arrival: Comments: Clarissa Villarreal, ANGIE 10/25/24 0026 AURANT INSPECTOR * Haley Sharma RN - 10/24/2024 8:50 PM CST Pt to ED after brother in law found pt laying on floor, pt states 10/10 lumbar back pain x1 day after long drive. Pt has metal alexa in R leg and stated back pain is impacting use of R leg. Family stated pt was hard to arouse when found on floor. Pt unsure if they fell. Pt unable to ambulate after being found and required being pulled out of car by staff d/t back pain. Pt denies numbness or tingling to extremities. GCS 15, VSS AURANT INSPECTOR documented in this encounter Plan of Treatment Scheduled Referrals Name Type Priority Associated Diagnoses Order Schedule [facility] referral to [facility] Referral Routine Lumbar strain, initial encounter Expected: 11/08/2024 (Approximate), Expires: 10/25/2025 documented as of this encounter Procedures Procedure Name Priority Date/Time Associated Diagnosis Comments URINALYSIS AND REFLEX TO MICROSCOPIC AND CULTURE STAT 10/25/2024 3:07 AM RESTAURANT INSPECTOR DRUGS OF ABUSE SCREEN, URINE WITHOUT CONFIRMATION STAT 10/25/2024 3:07 AM RESTAURANT INSPECTOR URINALYSIS, MICROSCOPIC ONLY STAT 10/25/2024 3:07 AM RESTAURANT INSPECTOR EGFR STAT 10/25/2024 3:02 AM RESTAURANT INSPECTOR DIFFERENTIAL AUTO STAT 10/25/2024 3:0 2 AM RESTAURANT INSPECTOR CBC WITH AUTO DIFFERENTIAL STAT 10/25/2024 3:02 AM RESTAURANT INSPECTOR ERYTHROCYTE SEDIMENTATION RATE STAT 10/25/2024 3:02 AM RESTAURANT INSPECTOR CRP (ACUTE PHASE) STAT 10/25/2024 3:0 2 AM RESTAURANT INSPECTOR LIPASE STAT 10/25/2024 3:02 AM RESTAURANT INSPECTOR BASIC METABOLIC PANEL STAT 10/25/2024 3:02 AM RESTAURANT INSPECTOR documented in this encounter Results * (ABNORMAL) Urinalysis, microscopic only (10/25/2024 3:07 AM RESTAURANT INSPECTOR) WBC, ur 0-5 0 - 5 /HPF RBC, ur 0-2 0 - 2 /HPF [facility] Mucous, ur Present(A) [facility] Culture Reflex Comment Reflex conditions for urine culture (WBC >10) not met. [facility] Urine 10/25/2024 3:07 AM RESTAURANT INSPECTOR 10/25/2024 3:17 AM RESTAURANT INSPECTOR us Craig Huertas MD LAB URINE ORDERABLES Final R esult [facility] Department [place] [address] * (ABNORMAL) Drugs of Abuse Screen, Urine without Confirmation (10/25/2024 3:07 AM RESTAURANT INSPECTOR) Amphetamine, ur Not Detected CutOff 500ng/mL Comment: Interpretive Data - Amphetamines: ??Samples containing greater than 500 ng/mL d-methamphetamine ??or other cross-reacting amphetamine compounds are reported as positive. ??Amphetamine immunoassays are subject to significant false positive rates due to cross-reactivity of non-amphetamine drugs. Confirmatory testing required for definitive results. Current Interpretive Data was last reviewed 2023. Barbiturates, ur Not Detected CutOff 200ng/mL [facility] Comment: Interpretive Data - Barbiturates: ??Samples containing greater than 200 ng/mL secobarbital or other cross-reacting barbiturate compounds are reported as positive. ??False positive and false negative results are possible. Confirmatory testing required for definitive results. Current Interpretive Data was last reviewed 2023. Benzodiazepines, ur Not Detected CutOff 100ng/mL [facility] Comment: Interpretive Data - Benzodiazepines: ??Samples containing greater than 100 ng/mL nordiazepam or other cross-reacting compounds are reported as positive. False positive and false negative results are possible. Confirmatory testing required for definitive results. Current Interpretive Data was last reviewed 2023. Cannabinoids, ur Screen Positive, presumptive (A) CutOff 50 ng/mL [facility] Comment: Interpretive Data - Cannabinoids: ??Samples containing greater than 50 ng/mL delta-9 THC -COOH or other cross-reacting compounds are reported as positive. ??False positive and false negative results are possible. ??Confirmatory testing required for definitive results. Current Interpretive Data was last reviewed 2023. Cocaine, ur Not Detected CutOff 150ng/mL [facility] Comment: Interpretive Data - Cocaine: ??Samples containing greater than 150 ng/mL benzoylecgonine or other cross-reacting compounds are reported as positive. False positive and false negative results are possible. Confirmatory testing required for definitive results. Current Interpretive Data was last reviewed 2023. Fentanyl, Ur Not Detected CutOff 5 ng/mL [facility] Comment: Interpretive Data - Fentanyl: ?? Samples containing greater than 5 ng/mL norfentanyl, fentanyl, or other cross-reacting fentanyl compounds are reported as positive. False positive and false negative results are possible. Confirmatory testing required for definitive results. Current Interpretive Data was last reviewed 2024. Methadone, ur Not Detected CutOff 300ng/mL [facility] Comment: Interpretive Data - Methadone: ??Samples containing greater than 300 ng/mL d,l-methadone or other cross-reacting compounds are reported as positive. ??False positive and false negative results are possible. Confirmatory testing required for definitive results. Current Interpretive Data was last reviewed 2023. Opiates, ur Not Detected CutOff 300ng/mL [facility] Comment: Interpretive Data - Opiates: ??Samples containing greater than 300 ng/mL morphine or other cross-reacting compounds are reported as positive. ??False positive and false negative results are possible. Confirmatory testing required for definitive results. Current Interpretive Data was last reviewed 2023. Oxycodone, ur Not Detected CutOff 100ng/mL [facility] Comment: Interpretive Data - Oxycodone: ??Samples containing greater than 100 ng/mL oxycodone or other cross-reacting compounds are reported as ??positive. ??False positive and false negative results are possible. Confirmatory testing required for definitive results. Current Interpretive Data was last reviewed 2023. Phencyclidine, ur Not Detected CutOff 25 ng/mL [facility] Comment: Interpretive Data - Phencyclidine: ??Samples containing greater than 25 ng/mL phencyclidine or other cross-reacting compounds are reported as positive. ??False positive and false negative results are possible. Confirmatory testing required for definitive results. Current Interpretive Data was last reviewed 2023. Urine Creatinine 70 mg/dL [facility] Comment: Interpretive Data Urine Creatinine: < 10 mg/dL is extremely dilute = or > 10 but < 20 mg/dL is dilute = or > 20 mg/dL is normal Current Interpretive Data was last revised on 2018. Urine 10/25/2024 3:07 AM RESTAURANT INSPECTOR 10/25/2024 3:23 AM RESTAURANT INSPECTOR Narrative [facility] - 10/25/2024 3:56 AM RESTAURANT INSPECTOR Drug of Abuse screening is performed by immunoassay for medical purposes only. ??This is not to be used for Pain Management purposes. us Craig Huertas MD LAB URINE ORDERABLES Final R esult [facility] Department [place] [address] * (ABNORMAL) Urinalysis reflex to microscopic and culture Urine (10/25/2024 3:07 AM RESTAURANT INSPECTOR) Color, ur Straw Yellow Clarity, ur Clear Clear [facility] Specific gravity, ur 1.007 1.003 - 1.030 [facility] pH, urine 6.0 [facility] Comment: Interpretive Data ? Urine pH is affected by diet, medications, systemic acid-base disturbances, and renal tubular function. ??pH may affect urinary stone formation. ??For example, urine pH below 6.0 may help reduce the tendency for calcium phosphate stones and pH greater than 6.0 may reduce the tendency for uric acid stone formation. Source: [facility] [employer] Current Interpretive Data was last revised on 2017 Protein, ur ql Negative Negative [facility] Glucose, ur ql Negative Negative [facility] Ketones, ur 2+(A) Negative [facility] Bilirubin, ur Negative Negative [facility] Blood, ur Trace(A) Negative [facility] Urobilinogen, ur <2.0 <2.0 mg/dL [facility] Nitrite, ur Negative Negative [facility] Leukocyte esterase, ur Negative Negative [facility] UA reflex comment Reflex to microscopic UA will be performed. [facility] Urine 10/25/2024 3:07 AM RESTAURANT INSPECTOR 10/25/2024 3:17 AM RESTAURANT INSPECTOR us Craig Huertas MD LAB MICROBIOLOGY - GENERAL O RDERABLES Final Result [facility] Department [place] [address] * eGFR (10/25/2024 3:02 AM RESTAURANT INSPECTOR) eGFR 90 >=60 mL/min/1. 73 m2 Comment: [...] last reviewed 2021. Blood 10/25/2024 3:02 AM RESTAURANT INSPECTOR 10/25/2024 3:23 AM RESTAURANT INSPECTOR us Craig Huertas MD LAB BLOOD ORDERABLES Final R esult [facility] Department [place] [address] * (ABNORMAL) Differential, auto (10/25/2024 3:02 AM RESTAURANT INSPECTOR) Neutrophil abs 4.4 1.5 - 6.5 K/cumm Imm gran abs 0.0 0.0 - 0.1 K/cumm [facility] Lymphocyte abs 0.7(L) 0.8 - 3.3 K/cumm [facility] Monocyte abs 0.8 0.2 - 0.8 K/cumm [facility] Eosinophil abs 0.0 0.0 - 0.5 K/cumm [facility] Basophil abs 0.0 0.0 - 0.1 K/cumm [facility] Neutrophil pct 74.6 % [facility] Comment: Interpretive Data Percent cell count reference ranges are not reported, since discordance with absolute values may lead to misinterpretation of CBC data. Current Interpretive Data was last revised on 2018. Imm gran pct 0.5 % [facility] Comment: Interpretive Data Percent cell count reference ranges are not reported, since discordance with absolute values may lead to misinterpretation of CBC data. Current Interpretive Data was last revised on 2018. Lymphocyte pct 11.6 % [facility] Comment: Interpretive Data Percent cell count reference ranges are not reported, since discordance with absolute values may lead to misinterpretation of CBC data. Current Interpretive Data was last revised on 2018. Monocyte pct 12.8 % [facility] Comment: Interpretive Data Percent cell count reference ranges are not reported, since discordance with absolute values may lead to misinterpretation of CBC data. Current Interpretive Data was last revised on 2018. Eosinophil pct 0.3 % [facility] Comment: Interpretive Data Percent cell count reference ranges are not reported, since discordance with absolute values may lead to misinterpretation of CBC data. Current Interpretive Data was last revised on 2018. Basophil pct 0.2 % [facility] Comment: Interpretive Data Percent cell count reference ranges are not reported, since discordance with absolute values may lead to misinterpretation of CBC data. Current Interpretive Data was last revised on 2018. Blood 10/25/2024 3:02 AM RESTAURANT INSPECTOR 10/25/2024 3:23 AM RESTAURANT INSPECTOR us Craig Huertas MD LAB BLOOD ORDERABLES Final R esult [facility] Department [place] [address] * Lipase (10/25/2024 3:02 AM RESTAURANT INSPECTOR) Lipase 12 10 - 99 Units/L Blood 10/25/2024 3:02 AM RESTAURANT INSPECTOR 10/25/2024 3:23 AM RESTAURANT INSPECTOR us Craig Huertas MD LAB BLOOD ORDERABLES Final R esult [facility] [place] [address] * CRP (acute phase) (10/25/2024 3:02 AM RESTAURANT INSPECTOR) CRP 6.1 <=10.0 mg/L Blood 10/25/2024 3:02 AM RESTAURANT INSPECTOR 10/25/2024 3:23 AM RESTAURANT INSPECTOR us Craig Huertas MD LAB BLOOD ORDERABLES Final R esult Performing Organization Address City/[facility] Co de Phone Number [facility] [place] [address] * Erythrocyte sedimentation rate (10/25/2024 3:02 AM RESTAURANT INSPECTOR) Pathologist [facility] Erythrocyte sedimentation rate 8 1 - 15 mm/hr Blood 10/25/2024 3:02 AM RESTAURANT INSPECTOR 10/25/2024 3:23 AM RESTAURANT INSPECTOR us Craig Huertas MD LAB BLOOD ORDERABLES Final R esult Performing Organization Address [facility] de Phone Number [facility] Department [place] [address] * CBC with auto differential (10/25/2024 3:02 AM RESTAURANT INSPECTOR) [facility] WBC 5.8 3.8 - 9.9 K/cumm Hgb 14.3 13.0 - 17.5 g/dL [facility] Hct 40.5 38.9 - 50.3 % [facility] Plt 178 150 - 400 K/cumm [facility] MPV 10.2 9.1 - 12.3 fL [facility] RBC 4.50 4.30 - 5.80 M/cumm [facility] MCV 90.0 81.3 - 96.4 fL [facility] MCH 31.8 27.1 - 33.3 pg [facility] MCHC 35.3 32.3 - 35.7 g/dL [facility] RDW CV 12.2 11.1 - 14.9 % [facility] RDW SD 40.4 35.7 - 48.1 fL [facility] NRBC abs 0.00 0.00 - 0.01 K/cumm [facility] Blood 10/25/2024 3:02 AM RESTAURANT INSPECTOR 10/25/2024 3:23 AM RESTAURANT INSPECTOR us Craig Huertas MD LAB BLOOD ORDERABLES Final R esult Performing Organization Address City/[facility] Co de Phone Number [facility] Department [place] [address] * Basic metabolic panel (10/25/2024 3:02 AM RESTAURANT INSPECTOR) Sodium 140 135 - 145 mmol/L Potassium, pl 3.5 3.3 - 4.9 mmol/L [facility] Chloride 102 97 - 110 mmol/L [facility] CO2 26 22 - 32 mmol/L [facility] Anion gap 12 2 - 15 mmol/L [facility] BUN 7 6 - 25 mg/dL [facility] Creatinine 1.12 0.80 - 1.30 mg/dL [facility] Glucose 100 70 - 199 mg/dL [facility] Comment: Interpretive Data Fasting glucose >/= 126 [...] 2022. Calcium 9.1 8.5 - 10.3 mg/dL [facility] Blood 10/25/2024 3:02 AM RESTAURANT INSPECTOR 10/25/2024 3:23 AM RESTAURANT INSPECTOR us Craig Huertas MD LAB BLOOD ORDERABLES Final R esult Performing Organization Address [facility] Co de Phone Number [facility] Department [place] [address] documented in this encounter Visit Diagnoses Diagnosis Lumbar strain, initial encounter- Primary documented in this encounter Administered Medications Inactive Administered Medications - up to 3 most recent administrations Medication Order MAR Action Action Date Dose Rate Site acetaminophen (TYLENOL) tablet 1,000 mg 1,000 mg, oral, Once, On Mon10/25/24 at 0233, For 1 dose Given 10/25/2024 2:37 AM RESTAURANT INSPECTOR 1,000 mg cyclobenzaprine (FLEXERIL) tablet 10 mg 10 mg, oral, Once, On Mon10/25/24 at 0410, For 1 dose Given 10/25/2024 4:24 AM RESTAURANT INSPECTOR 10 mg lidocaine (LIDODERM) 5 % patch 1 patch 1 patch, transdermal, Administer over 12 Hours, Every 24 hours, First dose on Mon10/25/24 at 0410, Do not cover the holes on the top side of the patch., Apply to affected area: back Medication Applied 10/25/2024 4:25 AM RESTAURANT INSPECTOR 1 patch Back ondansetron (ZOFRAN) 4 mg/2 mL injection - ADS Override Pull Starting on Mon10/25/24 at 0129, For 1 dose, Created by cabinet override ondansetron (ZOFRAN) injection 4 mg 4 mg, intravenous, Administer over 2 Minutes, Once, On Mon10/25/24 at 0147, For 1 dose Given 10/25/2024 1:40 AM RESTAURANT INSPECTOR 4 mg oxyCODONE (ROXICODONE) tablet 5 mg 5 mg, oral, Once, On Mon10/25/24 at 0233, For 1 dose, Indications: PainIndications:Pain Given 10/25/2024 2:37 AM RESTAURANT INSPECTOR 5 mg documented in this encounter Active and Recently Administered Medications Times are shown in RESTAURANT INSPECTOR. Scheduled Medication Order 10/23/2024 10/24/2024 10/25/2024 acetaminophen (TYLENOL) tablet 1,000 mg (COMPLETED) 1,000 mg, oral, Once, On Mon10/25/24 at 0233, For 1 dose 0237 (Given - Provid er: Luz Davis RN) cyclobenzaprine (FLEXERIL) tablet 10 mg (COMPLETED) 10 mg, oral, Once, On Mon10/25/24 at 0410, For 1 dose 0424 (Given - Provid er: Luz Davis RN) lidocaine (LIDODERM) 5 % patch 1 patch 1 patch, transdermal, Administer over 12 Hours, Every 24 hours, First dose on Mon10/25/24 at 0410, Do not cover the holes on the top side of the patch., Apply to affected area: back 0425 (Medication Bhavya lied - Provider: Luz Davis RN)0605 (Due: Medication Removed - Provider: Automatic Discharge Provider - Comment: Time automatically adjusted from order being discontinued) ondansetron (ZOFRAN) injection 4 mg (COMPLETED) 4 mg, intravenous, Administer over 2 Minutes, Once, On Mon10/25/24 at 0147, For 1 dose 0140 (Given - Provid er: Luz Davis RN) oxyCODONE (ROXICODONE) tablet 5 mg (COMPLETED) 5 mg, oral, Once, On Mon10/25/24 at 0233, For 1 dose, Indications: Pain 0237 (Given - Provid er: Luz Davis RN) documented in this encounter Care Teams Warehouse Freight Handler Relationship Specialty Start Date End Date Unknown, Notinfile PCP - General 10/25/24 documented as of this encounter
--- OUTSIDE RECORDS SUMMARY | 2024-11-04 17:51 | XMS_ITS | Clinical Summary ---
Author Organization [facility] Address [address] [place] [address] Care Team Providers Care Safety Deposit Clerk Name Role Phone Unknown, Notinfile Primary Care [...] Department Care Team Description 10/25/2024 12:26 AM PROFESSOR OF LAW - 10/25/2024 6:05 AM PROFESSOR OF LAW Emergency [facility] Emergency Department [address] [place] [address] Krunal Morrison MD PhD Henrry [...] on file Legal Sex Male 8:44 PM PROFESSOR OF LAW Gender Identity Not on file Sexual Orientation Not on file Last Filed Vital Signs Vital Sign Reading Time Taken Comments Blood Pressure 114/79 10/25/2024 2:00 AM PROFESSOR OF LAW Pulse 76 10/25/2024 2:00 AM PROFESSOR OF LAW Temperature 36.9 ??C (98.4 ??F) 10/25/2024 2:53 AM CS T Respiratory Rate 17 10/25/2024 2:00 AM PROFESSOR OF LAW Oxygen Saturation 94% 10/25/2024 2:00 AM PROFESSOR OF LAW Inhaled Oxygen Concentration - - Weight 72.6 kg (160 lb) 10/24/2024 8:50 PM PROFESSOR OF LAW Height 177.8 cm (5' 10 ) 10/24/2024 8:50 PM PROFESSOR OF LAW Body Mass Index 22.96 10/24/2024 8:50 PM PROFESSOR OF LAW Plan of Treatment Health Maintenance Due Date [...] URINALYSIS, MICROSCOPIC ONLY STAT 10/25/2024 3:07 AM PROFESSOR OF LAW DRUGS OF ABUSE SCREEN, URINE WITHOUT CONFIRMATION STAT 10/25/2024 3:07 AM PROFESSOR OF LAW URINALYSIS AND REFLEX TO MICROSCOPIC AND CULTURE STAT 10/25/2024 3:07 AM PROFESSOR OF LAW EGFR STAT 10/25/2024 3:02 AM PROFESSOR OF LAW DIFFERENTIAL AUTO STAT 10/25/2024 3:0 2 AM PROFESSOR OF LAW LIPASE STAT 10/25/2024 3:02 AM PROFESSOR OF LAW CRP (ACUTE PHASE) STAT 10/25/2024 3:0 2 AM PROFESSOR OF LAW ERYTHROCYTE SEDIMENTATION RATE STAT 10/25/2024 3:02 AM PROFESSOR OF LAW CBC WITH AUTO DIFFERENTIAL STAT 10/25/2024 3:02 AM PROFESSOR OF LAW BASIC METABOLIC PANEL STAT 10/25/2024 3:02 AM PROFESSOR OF LAW from Last 3 Months Results * (ABNORMAL) Urinalysis reflex to microscopic and culture Urine (10/25/2024 3:07 AM PROFESSOR OF LAW) Color, ur Straw Yellow Clarity, ur Clear Clear [facility] Specific gravity, ur 1.007 1.003 - 1.030 [facility] pH, urine 6.0 [facility] Comment: Interpretive Data ? Urine pH is affected by diet, medications, systemic acid-base disturbances, and renal tubular function. ??pH may affect urinary stone formation. ??For example, urine pH below 6.0 may help reduce the tendency for calcium phosphate stones and pH greater than 6.0 may reduce the tendency for uric acid stone formation. Source: [facility] Current Interpretive Data was last revised on 2017 Protein, ur ql Negative Negative [facility] Glucose, ur ql Negative Negative [facility] Ketones, ur 2+(A) Negative [facility] Bilirubin, ur Negative Negative [facility] Blood, ur Trace(A) Negative [facility] Urobilinogen, ur <2.0 <2.0 mg/dL [facility] Nitrite, ur Negative Negative [facility] Leukocyte esterase, ur Negative Negative [facility] UA reflex comment Reflex to microscopic UA will be performed. [facility] Urine 10/25/2024 3:07 AM PROFESSOR OF LAW 10/25/2024 3:17 AM PROFESSOR OF LAW us Craig Huertas MD LAB MICROBIOLOGY - GENERAL O LATONYA Final Result [facility] [place] [address] * (ABNORMAL) Drugs of Abuse Screen, Urine without Confirmation (10/25/2024 3:07 AM PROFESSOR OF LAW) [facility] Amphetamine, ur Not Detected CutOff 500ng/mL Comment: Interpretive Data - Amphetamines: ??Samples containing greater than 500 ng/mL d-methamphetamine ??or other cross-reacting amphetamine compounds are reported as positive. ??Amphetamine immunoassays are subject to significant false positive rates due to cross-reactivity of non-amphetamine drugs. Confirmatory testing required for definitive results. Current Interpretive Data was last reviewed 2023. Barbiturates, ur Not Detected CutOff 200ng/mL [facility] Comment: Interpretive Data - Barbiturates: ??Samples containing greater than 200 ng/mL secobarbital or other cross-reacting barbiturate compounds are reported as positive. ??False positive and false negative results are possible. Confirmatory testing required for definitive results. Current Interpretive Data was last reviewed 2023. Benzodiazepines, ur Not Detected CutOff 100ng/mL [facility] Comment: Interpretive Data - Benzodiazepines: ??Samples containing greater than 100 ng/mL nordiazepam or other cross-reacting compounds are reported as positive. False positive and false negative results are possible. Confirmatory testing required for definitive results. Current Interpretive Data was last reviewed 2023. Cannabinoids, ur Screen Positive, presumptive (A) CutOff 50 ng/mL [facility] Comment: Interpretive Data - Cannabinoids: ??Samples containing greater than 50 ng/mL delta-9 THC -COOH or other cross-reacting compounds are reported as positive. ??False positive and false negative results are possible. ??Confirmatory testing required for definitive results. Current Interpretive Data was last reviewed 2023. Cocaine, ur Not Detected CutOff 150ng/mL [facility] Comment: Interpretive Data - Cocaine: ??Samples containing greater than 150 ng/mL benzoylecgonine or other cross-reacting compounds are reported as positive. False positive and false negative results are possible. Confirmatory testing required for definitive results. Current Interpretive Data was last reviewed 2023. Fentanyl, Ur Not Detected CutOff 5 ng/mL [facility] Comment: Interpretive Data - Fentanyl: ?? Samples containing greater than 5 ng/mL norfentanyl, fentanyl, or other cross-reacting fentanyl compounds are reported as positive. False positive and false negative results are possible. Confirmatory testing required for definitive results. Current Interpretive Data was last reviewed 2024. Methadone, ur Not Detected CutOff 300ng/mL [facility] Comment: Interpretive Data - Methadone: ??Samples containing greater than 300 ng/mL d,l-methadone or other cross-reacting compounds are reported as positive. ??False positive and false negative results are possible. Confirmatory testing required for definitive results. Current Interpretive Data was last reviewed 2023. Opiates, ur Not Detected CutOff 300ng/mL [facility] Comment: Interpretive Data - Opiates: ??Samples containing greater than 300 ng/mL morphine or other cross-reacting compounds are reported as positive. ??False positive and false negative results are possible. Confirmatory testing required for definitive results. Current Interpretive Data was last reviewed 2023. Oxycodone, ur Not Detected CutOff 100ng/mL [facility] Comment: Interpretive Data - Oxycodone: ??Samples containing greater than 100 ng/mL oxycodone or other cross-reacting compounds are reported as ??positive. ??False positive and false negative results are possible. Confirmatory testing required for definitive results. Current Interpretive Data was last reviewed 2023. Phencyclidine, ur Not Detected CutOff 25 ng/mL [facility] Comment: Interpretive Data - Phencyclidine: ??Samples containing greater than 25 ng/mL phencyclidine or other cross-reacting compounds are reported as positive. ??False positive and false negative results are possible. Confirmatory testing required for definitive results. Current Interpretive Data was last reviewed 2023. Urine Creatinine 70 mg/dL [facility] Comment: Interpretive Data Urine Creatinine: < 10 mg/dL is extremely dilute = or > 10 but < 20 mg/dL is dilute = or > 20 mg/dL is normal Current Interpretive Data was last revised on 2018. Urine 10/25/2024 3:07 AM PROFESSOR OF LAW 10/25/2024 3:23 AM PROFESSOR OF LAW Narrative [facility] - 10/25/2024 3:56 AM PROFESSOR OF LAW Drug of Abuse screening is performed by immunoassay for medical purposes only. ??This is not to be used for Pain Management purposes. Craig Huertas MD LAB URINE ORDERABLES Final R esult Performing Organization Address [facility] de Phone Number [facility] [place] [address] * (ABNORMAL) Urinalysis, microscopic only (10/25/2024 3:07 AM PROFESSOR OF LAW) WBC, ur 0-5 0 - 5 /HPF RBC, ur 0-2 0 - 2 /HPF [facility] Mucous, ur Present(A) [facility] Culture Reflex Comment Reflex conditions for urine culture (WBC >10) not met. [facility] Urine 10/25/2024 3:07 AM PROFESSOR OF LAW 10/25/2024 3:17 AM PROFESSOR OF LAW us Craig Huertas MD LAB URINE ORDERABLES [facility] Performing Organization Address [facility] [place] [address] * eGFR (10/25/2024 3:02 AM PROFESSOR OF LAW) eGFR 90 >=60 mL/min/1. 73 m2 Comment: [...] last reviewed 2021. Blood 10/25/2024 3:02 AM PROFESSOR OF LAW 10/25/2024 3:23 AM PROFESSOR OF LAW us Craig Huertas MD LAB BLOOD ORDERABLES Final R esult [facility] [place] [address] * (ABNORMAL) Differential, auto (10/25/2024 3:02 AM PROFESSOR OF LAW) Neutrophil abs 4.4 1.5 - 6.5 K/cumm Imm gran abs 0.0 0.0 - 0.1 K/cumm [facility] Lymphocyte abs 0.7(L) 0.8 - 3.3 K/cumm [facility] Monocyte abs 0.8 0.2 - 0.8 K/cumm [facility] Eosinophil abs 0.0 0.0 - 0.5 K/cumm [facility] Basophil abs 0.0 0.0 - 0.1 K/cumm [facility] Neutrophil pct 74.6 % [facility] Comment: Interpretive Data Percent cell count reference ranges are not reported, since discordance with absolute values may lead to misinterpretation of CBC data. Current Interpretive Data was last revised on 2018. Imm gran pct 0.5 % [facility] Comment: Interpretive Data Percent cell count reference ranges are not reported, since discordance with absolute values may lead to misinterpretation of CBC data. Current Interpretive Data was last revised on 2018. Lymphocyte pct 11.6 % [facility] Comment: Interpretive Data Percent cell count reference ranges are not reported, since discordance with absolute values may lead to misinterpretation of CBC data. Current Interpretive Data was last revised on 2018. Monocyte pct 12.8 % [facility] Comment: Interpretive Data Percent cell count reference ranges are not reported, since discordance with absolute values may lead to misinterpretation of CBC data. Current Interpretive Data was last revised on 2018. Eosinophil pct 0.3 % [facility] Comment: Interpretive Data Percent cell count reference ranges are not reported, since discordance with absolute values may lead to misinterpretation of CBC data. Current Interpretive Data was last revised on 2018. Basophil pct 0.2 % [facility] Comment: Interpretive Data Percent cell count reference ranges are not reported, since discordance with absolute values may lead to misinterpretation of CBC data. Current Interpretive Data was last revised on 2018. Blood 10/25/2024 3:02 AM PROFESSOR OF LAW 10/25/2024 3:23 AM PROFESSOR OF LAW us Craig Huertas MD LAB BLOOD ORDERABLES Final R esult [facility] [place] [address] * CBC with auto differential (10/25/2024 3:02 AM PROFESSOR OF LAW) WBC 5.8 3.8 - 9.9 K/cumm Hgb 14.3 13.0 - 17.5 g/dL [facility] Hct 40.5 38.9 - 50.3 % [facility] Plt 178 150 - 400 K/cumm [facility] MPV 10.2 9.1 - 12.3 fL [facility] RBC 4.50 4.30 - 5.80 M/cumm [facility] MCV 90.0 81.3 - 96.4 fL [facility] MCH 31.8 27.1 - 33.3 pg [facility] MCHC 35.3 32.3 - 35.7 g/dL [facility] RDW CV 12.2 11.1 - 14.9 % [facility] RDW SD 40.4 35.7 - 48.1 fL [facility] NRBC abs 0.00 0.00 - 0.01 K/cumm [facility] Blood 10/25/2024 3:02 AM PROFESSOR OF LAW 10/25/2024 3:23 AM PROFESSOR OF LAW us Craig Huertas MD LAB BLOOD ORDERABLES Final R esult [facility] [place] [address] * Erythrocyte sedimentation rate (10/25/2024 3:02 AM PROFESSOR OF LAW) Erythrocyte sedimentation rate 8 1 - 15 mm/hr Blood 10/25/2024 3:02 AM PROFESSOR OF LAW 10/25/2024 3:23 AM PROFESSOR OF LAW us Craig Huertas MD LAB BLOOD ORDERABLES Final R esult Performing Organization Address City/[facility] Co de Phone Number [facility] [place] [place] [address] * CRP (acute phase) (10/25/2024 3:02 AM PROFESSOR OF LAW) CRP 6.1 <=10.0 mg/L Blood 10/25/2024 3:02 AM PROFESSOR OF LAW 10/25/2024 3:23 AM PROFESSOR OF LAW us Craig Huertas MD LAB BLOOD ORDERABLES Final R esult Performing Organization Address City/[facility] Co de Phone Number [facility] [place] [address] * Lipase (10/25/2024 3:02 AM PROFESSOR OF LAW) Lipase 12 10 - 99 Units/L Blood 10/25/2024 3:02 AM PROFESSOR OF LAW 10/25/2024 3:23 AM PROFESSOR OF LAW us Craig Huertas MD LAB BLOOD ORDERABLES Final R esult Performing Organization Address City/[facility]/ZIP Co de Phone Number [facility] Department [place] [address] * Basic metabolic panel (10/25/2024 3:02 AM PROFESSOR OF LAW) Sodium 140 135 - 145 mmol/L Potassium, pl 3.5 3.3 - 4.9 mmol/L [facility] Chloride 102 97 - 110 mmol/L [facility] CO2 26 22 - 32 mmol/L [facility] Anion gap 12 2 - 15 mmol/L [facility] BUN 7 6 - 25 mg/dL [facility] Creatinine 1.12 0.80 - 1.30 mg/dL [facility] Glucose 100 70 - 199 mg/dL [facility] Comment: Interpretive Data Fasting glucose >/= [...] 2022. Calcium 9.1 8.5 - 10.3 mg/dL [facility] Blood 10/25/2024 3:02 AM PROFESSOR OF LAW 10/25/2024 3:23 AM PROFESSOR OF LAW us Craig Huertas MD LAB BLOOD ORDERABLES Final R esult Performing Organization Address City/[facility]/ZIP Co de Phone Number [facility] [place] [address] from Last 3 Months Care Teams Safety Deposit Clerk Relationship Specialty Start Date End Date Unknown, Notinfile PCP - General 10/25/24
--- OUTSIDE RECORDS SUMMARY | 2024-11-04 17:51 | XMS_ITS | Encounter Summary ---
Author Organization [facility] Healthcare Address [address] [place] [address] Care Team Providers Care Farm Field Manager Name Role Phone Unknown, Notinfile Primary Care Provider Unavail able Reason for Referral * Consultation (Routine) - Pending Review Specialty Diagnoses / Procedures Referred By Amauri t Referred To Contact Internal Medicine Diagnoses Lumbar strain, initial encounter Craig Huertas MD [address] [place] [address] Phone: tel: fax: [facility] [address] [facility] [place] [address] Phone: tel: fax: Referral ID Status Reason Start Date Expiration Date Visits Requested Visits Authorized [id number] Pending Review Specialty Services Required 11/24/2025 1 1 Question Answer Please select the performing region: [facility] [[id number]] # of visits: 1 Comments Please contact the clinic to schedule your appointment if you do not receive a call by the end of the next business day. EILLANCE INSPECTOR Reason for Visit * Reason Comments Back Pain Encounter Details Date Type Department Care Team (Late st Contact Info) Description 10/25/2024 12:26 AM SURVEILLANCE INSPECTOR - 10/25/2024 6:05 AM SURVEILLANCE INSPECTOR Emergency [facility] Emergency Department [address] [place] [address] rKunal Morrison MD PhD [address] [facility] [address] [place] [address] Henrry Fischer MD [address] [place] [address] Lumbar strain, initial encounter (Primary Dx) Discharge [...] on file Legal Sex Male 8:44 PM SURVEILLANCE INSPECTOR Gender Identity Not on file Sexual Orientation Not on file documented as of this encounter Last Filed Vital Signs Vital Sign Reading Time Taken Comments Blood Pressure 114/79 10/25/2024 2:00 AM SURVEILLANCE INSPECTOR Pulse 76 10/25/2024 2:00 AM SURVEILLANCE INSPECTOR Temperature 36.9 ??C (98.4 ??F) 10/25/2024 2:53 AM CS T Respiratory Rate 17 10/25/2024 2:00 AM SURVEILLANCE INSPECTOR Oxygen Saturation 94% 10/25/2024 2:00 AM SURVEILLANCE INSPECTOR Inhaled Oxygen Concentration - - Weight 72.6 kg (160 lb) 10/24/2024 8:50 PM SURVEILLANCE INSPECTOR Height 177.8 cm (5' 10 ) 10/24/2024 8:50 PM SURVEILLANCE INSPECTOR Body Mass Index 22.96 10/24/2024 8:50 PM SURVEILLANCE INSPECTOR documented in this encounter Discharge Instructions * Discharge Instructions* Craig Huertas MD - 10/25/2024 4:05 AM SURVEILLANCE INSPECTOR You were seen in the Emergency [...] down food or other new serious concerns. EILLANCE INSPECTOR EILLANCE INSPECTOR * Attachments The following attachments cannot be sent through Care Everywhere. * Back Sprain/Strain (German) * Sciatica (German) documented in this encounter Medications at Time [...] evaluation. Krunal Morrison MD PhD 10/25/24 1030 EILLANCE INSPECTOR * Craig Huertas MD - 10/25/2024 2:52 AM CST HPI Chief Complaint Patient presents with Back Pain Bry Navas is a 29yo M no previous past medical history who presents to ED for severe right lowback pain. Patient reports he was driving from [place] and had been in the car for about an hour when around 1:00 p.m. he started to have acute onset atraumatic severe right-sided back pain radiating down his right leg. Patient states pain was so severe that they had to insole tack puller hand for him to vomit. He arrived here reportedly syncopal fall, does not remember events of this but awoke on the floor with his [id number] shaking, awake, downtime approximately 30 minutes, was [...] alert. Psychiatric: Mood and Affect: Mood normal. [facility] Medical Decision Making 29yo M no [...] Morrison MD PhD at 10/29/2024 6:47 AM SURVEILLANCE INSPECTOR EILLANCE INSPECTOR EILLANCE INSPECTOR Associated attestation - Krunal Morrison MD PhD - 10/29/2024 6:47 AM SURVEILLANCE INSPECTOR I have seen and examined the patient ([id number]). I reviewed the resident's note and agree with thefindings and plan of care as documented in the resident's note unless I have documented otherwise. * Clarissa Blount, RN - 10/25/2024 12:26 AM CST Bed: ED2-19 Expected date: Expected time: Means of arrival: Comments: Clarissa Villarreal, ANGIE 10/25/24 0026 EILLANCE INSPECTOR * Haley Sharma RN - 10/24/2024 [...] or tingling to extremities. GCS 15, VSS EILLANCE INSPECTOR documented in this encounter Plan of Treatment Scheduled Referrals Name Type Priority Associated Diagnoses Order Schedule Ambulatory referral to [facility] Referral Routine Lumbar strain, initial encounter Expected: 11/08/2024 (Approximate), Expires: 10/25/2025 documented as of this encounter Procedures Procedure Name Priority Date/Time Associated Diagnosis Comments URINALYSIS AND REFLEX TO MICROSCOPIC AND CULTURE STAT 10/25/2024 3:07 AM SURVEILLANCE INSPECTOR DRUGS OF ABUSE SCREEN, URINE WITHOUT CONFIRMATION STAT 10/25/2024 3:07 AM SURVEILLANCE INSPECTOR URINALYSIS, MICROSCOPIC ONLY STAT 10/25/2024 3:07 AM SURVEILLANCE INSPECTOR EGFR STAT 10/25/2024 3:02 AM SURVEILLANCE INSPECTOR DIFFERENTIAL AUTO STAT 10/25/2024 3:0 2 AM SURVEILLANCE INSPECTOR CBC WITH AUTO DIFFERENTIAL STAT 10/25/2024 3:02 AM SURVEILLANCE INSPECTOR ERYTHROCYTE SEDIMENTATION RATE STAT 10/25/2024 3:02 AM SURVEILLANCE INSPECTOR CRP (ACUTE PHASE) STAT 10/25/2024 3:0 2 AM SURVEILLANCE INSPECTOR LIPASE STAT 10/25/2024 3:02 AM SURVEILLANCE INSPECTOR BASIC METABOLIC PANEL STAT 10/25/2024 3:02 AM SURVEILLANCE INSPECTOR documented in this encounter Results * (ABNORMAL) Urinalysis, microscopic only (10/25/2024 3:07 AM SURVEILLANCE INSPECTOR) WBC, ur 0-5 0 - 5 /HPF RBC, ur 0-2 0 - 2 /HPF [facility] Mucous, ur Present(A) [facility] Culture Reflex Comment Reflex conditions for urine culture (WBC >10) not met. [facility] Urine 10/25/2024 3:07 AM SURVEILLANCE INSPECTOR 10/25/2024 3:17 AM SURVEILLANCE INSPECTOR us Craig Huertas MD LAB URINE ORDERABLES Final R esult [facility] Department [place] [address] * (ABNORMAL) Drugs of Abuse Screen, Urine without Confirmation (10/25/2024 3:07 AM SURVEILLANCE INSPECTOR) Amphetamine, ur Not Detected CutOff 500ng/mL Comment: Interpretive Data - Amphetamines: ??Samples containing greater than 500 ng/mL d-methamphetamine ??or other cross-reacting amphetamine compounds are reported as positive. ??Amphetamine immunoassays are subject to significant false positive rates due to cross-reactivity of non-amphetamine drugs. Confirmatory testing required for definitive results. Current Interpretive Data was last reviewed 2023. Barbiturates, ur Not Detected CutOff 200ng/mL [facility] Comment: Interpretive Data - Barbiturates: ??Samples containing [...] Positive, presumptive (A) CutOff 50 ng/mL [facility] Comment: Interpretive Data - Cannabinoids: ??Samples containing greater than 50 ng/mL delta-9 THC -COOH or other cross-reacting compounds are reported as positive. ??False positive and false negative results are possible. ??Confirmatory testing required for definitive results. Current Interpretive Data was last reviewed 2023. Cocaine, ur Not Detected CutOff 150ng/mL [facility] Comment: Interpretive Data - Cocaine: [...] Oxycodone, ur Not Detected CutOff 100ng/mL [facility] Comment: Interpretive Data - Oxycodone: ??Samples containing greater than 100 ng/mL oxycodone or other cross-reacting compounds are reported as ??positive. ??False positive and false negative results are possible. Confirmatory testing required for definitive results. Current Interpretive Data was last reviewed 2023. Phencyclidine, ur Not Detected CutOff 25 ng/mL [facility] Comment: Interpretive Data - Phencyclidine: ??Samples containing greater than 25 ng/mL phencyclidine or other cross-reacting compounds are reported as positive. ??False positive and false negative results are possible. Confirmatory testing required for definitive results. Current Interpretive Data was last reviewed 2023. Urine Creatinine 70 mg/dL [facility] Comment: Interpretive Data Urine Creatinine: < 10 mg/dL is extremely dilute = or > 10 but < 20 mg/dL is dilute = or > 20 mg/dL is normal Current Interpretive Data was last revised on 2018. Urine 10/25/2024 3:07 AM SURVEILLANCE INSPECTOR 10/25/2024 3:23 AM SURVEILLANCE INSPECTOR Narrative [facility] - 10/25/2024 3:56 AM SURVEILLANCE INSPECTOR Drug of Abuse screening is performed by immunoassay for medical purposes only. ??This is not to be used for Pain Management purposes. us Craig Huertas MD LAB URINE ORDERABLES Final R esult [facility] Department [place] [address] * (ABNORMAL) Urinalysis reflex to microscopic and culture Urine (10/25/2024 3:07 AM SURVEILLANCE INSPECTOR) Color, ur Straw Yellow Clarity, ur Clear Clear [facility] Specific gravity, ur 1.007 1.003 - 1.030 [facility] pH, urine 6.0 [facility] Comment: Interpretive Data ? Urine pH is affected by diet, medications, systemic acid-base disturbances, and renal tubular function. ??pH may affect urinary stone formation. ??For example, urine pH below 6.0 may help reduce the tendency for calcium phosphate stones and pH greater than 6.0 may reduce the tendency for uric acid stone formation. Source: [facility] [place] Current Interpretive Data was last revised on 2017 Protein, ur ql Negative Negative [facility] Glucose, ur ql Negative Negative [facility] Ketones, ur 2+(A) Negative [facility] Bilirubin, ur Negative Negative [facility] Blood, ur Trace(A) Negative [facility] Urobilinogen, ur <2.0 <2.0 mg/dL [facility] Nitrite, ur Negative Negative [facility] Leukocyte esterase, ur Negative Negative [facility] UA reflex comment Reflex to microscopic UA will be performed. [facility] Urine 10/25/2024 3:07 AM SURVEILLANCE INSPECTOR 10/25/2024 3:17 AM SURVEILLANCE INSPECTOR us Craig Huertas MD LAB MICROBIOLOGY - GENERAL O RDERABLES Final Result [facility] Department [place] [address] * eGFR (10/25/2024 3:02 AM SURVEILLANCE INSPECTOR) eGFR 90 >=60 mL/min/1. 73 m2 [...] last reviewed 2021. Blood 10/25/2024 3:02 AM SURVEILLANCE INSPECTOR 10/25/2024 3:23 AM SURVEILLANCE INSPECTOR us Craig Huertas MD LAB BLOOD ORDERABLES Final R esult [facility] Department [place] [address] * (ABNORMAL) Differential, auto (10/25/2024 3:02 AM SURVEILLANCE INSPECTOR) Neutrophil abs 4.4 1.5 - 6.5 K/cumm Imm gran abs 0.0 0.0 - 0.1 K/cumm [facility] Lymphocyte abs 0.7(L) 0.8 - 3.3 K/cumm [facility] Monocyte abs 0.8 0.2 - 0.8 K/cumm [facility] Eosinophil abs 0.0 0.0 - 0.5 K/cumm [facility] Basophil abs 0.0 0.0 - 0.1 K/cumm [facility] Neutrophil pct 74.6 % [facility] Comment: Interpretive Data Percent cell count reference ranges are not reported, since discordance with absolute values may lead to misinterpretation of CBC data. Current Interpretive Data was last revised on 2018. Imm gran pct 0.5 % [facility] Comment: Interpretive Data Percent cell count reference ranges are not reported, since discordance with absolute values may lead to misinterpretation of CBC data. Current Interpretive Data was last revised on 2018. Lymphocyte pct 11.6 % [facility] Comment: Interpretive Data Percent cell count reference ranges are not reported, since discordance with absolute values may lead to misinterpretation of CBC data. Current Interpretive Data was last revised on 2018. Monocyte pct 12.8 % [facility] Comment: Interpretive Data Percent cell count reference ranges are not reported, since discordance with absolute values may lead to misinterpretation of CBC data. Current Interpretive Data was last revised on 2018. Eosinophil pct 0.3 % [facility] Comment: Interpretive Data Percent cell count reference ranges are not reported, since discordance with absolute values may lead to misinterpretation of CBC data. Current Interpretive Data was last revised on 2018. Basophil pct 0.2 % [facility] Comment: Interpretive Data Percent cell count reference ranges are not reported, since discordance with absolute values may lead to misinterpretation of CBC data. Current Interpretive Data was last revised on 2018. Blood 10/25/2024 3:02 AM SURVEILLANCE INSPECTOR 10/25/2024 3:23 AM SURVEILLANCE INSPECTOR us Craig Huertas MD LAB BLOOD ORDERABLES Final R esult [facility] Department [place] [address] * Lipase (10/25/2024 3:02 AM SURVEILLANCE INSPECTOR) Lipase 12 10 - 99 Units/L Blood 10/25/2024 3:02 AM SURVEILLANCE INSPECTOR 10/25/2024 3:23 AM SURVEILLANCE INSPECTOR us Craig Huertas MD LAB BLOOD ORDERABLES Final R esult [facility] Department [place] [address] * CRP (acute phase) (10/25/2024 3:02 AM SURVEILLANCE INSPECTOR) CRP 6.1 <=10.0 mg/L Blood 10/25/2024 3:02 AM SURVEILLANCE INSPECTOR 10/25/2024 3:23 AM SURVEILLANCE INSPECTOR us Craig Huertas MD LAB BLOOD ORDERABLES Final R esult Performing Organization Address [facility] Co de Phone Number [facility] [place] [address] * Erythrocyte sedimentation rate (10/25/2024 3:02 AM SURVEILLANCE INSPECTOR) Pathologist [facility] Erythrocyte sedimentation rate 8 1 - 15 mm/hr Blood 10/25/2024 3:02 AM SURVEILLANCE INSPECTOR 10/25/2024 3:23 AM SURVEILLANCE INSPECTOR us Craig Huertas MD LAB BLOOD ORDERABLES Final R esult Performing Organization Address [facility] de Phone Number [facility] Department [place] [address] * CBC with auto differential (10/25/2024 3:02 AM SURVEILLANCE INSPECTOR) [facility] WBC 5.8 3.8 - 9.9 K/cumm Hgb 14.3 13.0 - 17.5 g/dL [facility] Hct 40.5 38.9 - 50.3 % [facility] Plt 178 150 - 400 K/cumm [facility] MPV 10.2 9.1 - 12.3 fL [facility] RBC 4.50 4.30 - 5.80 M/cumm [facility] MCV 90.0 81.3 - 96.4 fL [facility] MCH 31.8 27.1 - 33.3 pg [facility] MCHC 35.3 32.3 - 35.7 g/dL [facility] RDW CV 12.2 11.1 - 14.9 % [facility] RDW SD 40.4 35.7 - 48.1 fL [facility] NRBC abs 0.00 0.00 - 0.01 K/cumm [facility] Blood 10/25/2024 3:02 AM SURVEILLANCE INSPECTOR 10/25/2024 3:23 AM SURVEILLANCE INSPECTOR us Craig Huertas MD LAB BLOOD ORDERABLES Final R esult Performing Organization Address [facility] Co de Phone Number [facility] Department [place] [address] * Basic metabolic panel (10/25/2024 3:02 AM SURVEILLANCE INSPECTOR) Sodium 140 135 - 145 mmol/L Potassium, pl 3.5 3.3 - 4.9 mmol/L [facility] Chloride 102 97 - 110 mmol/L [facility] CO2 26 22 - 32 mmol/L [facility] Anion gap 12 2 - 15 mmol/L [facility] BUN 7 6 - 25 mg/dL [facility] Creatinine 1.12 0.80 - 1.30 mg/dL [facility] Glucose 100 70 - 199 mg/dL [facility] Comment: Interpretive Data Fasting glucose >/= 126 [...] 2022. Calcium 9.1 8.5 - 10.3 mg/dL [facility] Blood 10/25/2024 3:02 AM SURVEILLANCE INSPECTOR 10/25/2024 3:23 AM SURVEILLANCE INSPECTOR us Craig Huertas MD LAB BLOOD ORDERABLES Final R esult Performing Organization Address [facility] Co de Phone Number [facility] Department [place] [address] documented in this encounter Visit Diagnoses Diagnosis Lumbar strain, initial encounter- Primary documented in this encounter Administered Medications Inactive Administered Medications - up to 3 most recent administrations Medication Order MAR Action Action Date Dose Rate Site acetaminophen (TYLENOL) tablet 1,000 mg 1,000 mg, oral, Once, On Mon10/25/24 at 0233, For 1 dose Given 10/25/2024 2:37 AM SURVEILLANCE INSPECTOR 1,000 mg cyclobenzaprine (FLEXERIL) tablet 10 mg 10 mg, oral, Once, On Mon10/25/24 at 0410, For 1 dose Given 10/25/2024 4:24 AM SURVEILLANCE INSPECTOR 10 mg lidocaine (LIDODERM) 5 % patch 1 patch 1 patch, transdermal, Administer over 12 Hours, Every 24 hours, First dose on Mon10/25/24 at 0410, Do not cover the holes on the top side of the patch., Apply to affected area: back Medication Applied 10/25/2024 4:25 AM SURVEILLANCE INSPECTOR 1 patch Back ondansetron (ZOFRAN) 4 mg/2 mL injection - ADS Override Pull Starting on Mon10/25/24 at 0129, For 1 dose, Created by cabinet override ondansetron (ZOFRAN) injection 4 mg 4 mg, intravenous, Administer over 2 Minutes, Once, On Mon10/25/24 at 0147, For 1 dose Given 10/25/2024 1:40 AM SURVEILLANCE INSPECTOR 4 mg oxyCODONE (ROXICODONE) tablet 5 mg 5 mg, oral, Once, On Mon10/25/24 at 0233, For 1 dose, Indications: PainIndications:Pain Given 10/25/2024 2:37 AM SURVEILLANCE INSPECTOR 5 mg documented in this encounter Active and Recently Administered Medications Times are shown in SURVEILLANCE INSPECTOR. Scheduled Medication Order 10/23/2024 10/24/2024 10/25/2024 [...] RN) documented in this encounter Care Teams Farm Field Manager Relationship Specialty Start Date End Date Unknown, Notinfile PCP - General 10/25/24 documented as of this encounter
--- OUTSIDE RECORDS SUMMARY | 2024-11-04 17:51 | XMS_ITS | Referral Summary ---
Author Organization [facility] Address [address] [place] [address] Care Team Providers Care Board Catcher Name Role Phone Unknown, Notinfile Primary Care Provider Unavail able Encounters Date Type Department Care Team Description 10/25/2024 12:26 AM SKI MOLDER - 10/25/2024 6:05 AM SKI M[facility]DER Emergency [facility] Emergency Department [address] [place] [address] Krunal Morrison MD PhD Fischer, [...] on file Legal Sex Male 8:44 PM SKI MOLDER Gender Identity Not on file Sexual Orientation Not on file Last Filed Vital Signs Vital Sign Reading Time Taken Comments Blood Pressure 114/79 10/25/2024 2:00 AM SKI MOLDER Pulse 76 10/25/2024 2:00 AM SKI MOLDER Temperature 36.9 ??C (98.4 ??F) 10/25/2024 2:53 AM CS T Respiratory Rate 17 10/25/2024 2:00 AM SKI MOLDER Oxygen Saturation 94% 10/25/2024 2:00 AM SKI MOLDER Inhaled Oxygen Concentration - - Weight 72.6 kg (160 lb) 10/24/2024 8:50 PM SKI MOLDER Height 177.8 cm (5' 10 ) 10/24/2024 8:50 PM SKI MOLDER Body Mass Index 22.96 10/24/2024 8:50 PM SKI MOLDER Plan of Treatment Not on file Procedures Procedure Name Priority Date/Time Associated Diagnosis Comments URINALYSIS, MICROSCOPIC ONLY STAT 10/25/2024 3:07 AM SKI MOLDER DRUGS OF ABUSE SCREEN, URINE WITHOUT CONFIRMATION STAT 10/25/2024 3:07 AM SKI MOLDER URINALYSIS AND REFLEX TO MICROSCOPIC AND CULTURE STAT 10/25/2024 3:07 AM SKI MOLDER EGFR STAT 10/25/2024 3:02 AM SKI MOLDER DIFFERENTIAL AUTO STAT 10/25/2024 3:0 2 AM SKI MOLDER LIPASE STAT 10/25/2024 3:02 AM SKI MOLDER CRP (ACUTE PHASE) STAT 10/25/2024 3:0 2 AM SKI MOLDER ERYTHROCYTE SEDIMENTATION RATE STAT 10/25/2024 3:02 AM SKI MOLDER CBC WITH AUTO DIFFERENTIAL STAT 10/25/2024 3:02 AM SKI MOLDER BASIC METABOLIC PANEL STAT 10/25/2024 3:02 AM SKI MOLDER from Last 3 Months Results * (ABNORMAL) Urinalysis reflex to microscopic and culture Urine (10/25/2024 3:07 AM SKI MOLDER) Color, ur Straw Yellow Clarity, ur Clear Clear [facility] Specific gravity, ur 1.007 1.003 - 1.030 [facility] pH, urine 6.0 [facility] Comment: Interpretive Data ? Urine pH is affected by diet, medications, systemic acid-base disturbances, and renal tubular function. ??pH may affect urinary stone formation. ??For example, urine pH below 6.0 may help reduce the tendency for calcium phosphate stones and pH greater than 6.0 may reduce the tendency for uric acid stone formation. Source: [facility] [employer] Current Interpretive Data was last revised on 2017 Protein, ur ql Negative Negative [facility] Glucose, ur ql Negative Negative [facility] Ketones, ur 2+(A) Negative [facility] Bilirubin, ur Negative Negative [facility] Blood, ur Trace(A) Negative [facility] Urobilinogen, ur <2.0 <2.0 mg/dL [facility] Nitrite, ur Negative Negative [facility] Leukocyte esterase, ur Negative Negative [facility] UA reflex comment Reflex to microscopic UA will be performed. [facility] Urine 10/25/2024 3:07 AM SKI MOLDER 10/25/2024 3:17 AM SKI MOLDER us Craig Huertas MD LAB MICROBIOLOGY - GENERAL O RDERABLES Final Result [facility] Department [place] [address] * (ABNORMAL) Drugs of Abuse Screen, Urine without Confirmation (10/25/2024 3:07 AM SKI MOLDER) Amphetamine, ur Not Detected [facility] 500ng/mL Comment: Interpretive Data - Amphetamines: ??Samples containing greater than 500 ng/mL d-methamphetamine ??or other cross-reacting amphetamine compounds are reported as positive. ??Amphetamine immunoassays are subject to significant false positive rates due to cross-reactivity of non-amphetamine drugs. Confirmatory testing required for definitive results. Current Interpretive Data was last reviewed 2023. Barbiturates, ur Not Detected CutOff 200ng/mL [facility] Comment: Interpretive Data - Barbiturates: ??Samples containing greater than 200 ng/mL secobarbital or other cross-reacting barbiturate compounds are reported as positive. ??False positive and false negative results are possible. Confirmatory testing required for definitive results. Current Interpretive Data was last reviewed 2023. Benzodiazepines, ur Not Detected CutOff 100ng/mL [facility] Comment: Interpretive Data - Benzodiazepines: ??Samples containing greater than 100 ng/mL nordiazepam or other cross-reacting compounds are reported as positive. False positive and false negative results are possible. Confirmatory testing required for definitive results. Current Interpretive Data was last reviewed 2023. Cannabinoids, ur Screen Positive, presumptive (A) CutOff 50 ng/mL [facility] Comment: Interpretive Data - Cannabinoids: ??Samples containing greater than 50 ng/mL delta-9 THC -COOH or other cross-reacting compounds are reported as positive. ??False positive and false negative results are possible. ??Confirmatory testing required for definitive results. Current Interpretive Data was last reviewed 2023. Cocaine, ur Not Detected CutOff 150ng/mL [facility] Comment: Interpretive Data - Cocaine: ??Samples containing greater than 150 ng/mL benzoylecgonine or other cross-reacting compounds are reported as positive. False positive and false negative results are possible. Confirmatory testing required for definitive results. Current Interpretive Data was last reviewed 2023. Fentanyl, Ur Not Detected CutOff 5 ng/mL [facility] Comment: Interpretive Data - Fentanyl: ?? Samples containing greater than 5 ng/mL norfentanyl, fentanyl, or other cross-reacting fentanyl compounds are reported as positive. False positive and false negative results are possible. Confirmatory testing required for definitive results. Current Interpretive Data was last reviewed 2024. Methadone, ur Not Detected CutOff 300ng/mL [facility] Comment: Interpretive Data - Methadone: ??Samples containing greater than 300 ng/mL d,l-methadone or other cross-reacting compounds are reported as positive. ??False positive and false negative results are possible. Confirmatory testing required for definitive results. Current Interpretive Data was last reviewed 2023. Opiates, ur Not Detected CutOff 300ng/mL [facility] Comment: Interpretive Data - Opiates: ??Samples containing greater than 300 ng/mL morphine or other cross-reacting compounds are reported as positive. ??False positive and false negative results are possible. Confirmatory testing required for definitive results. Current Interpretive Data was last reviewed 2023. Oxycodone, ur Not Detected CutOff 100ng/mL [facility] Comment: Interpretive Data - Oxycodone: ??Samples containing greater than 100 ng/mL oxycodone or other cross-reacting compounds are reported as ??positive. ??False positive and false negative results are possible. Confirmatory testing required for definitive results. Current Interpretive Data was last reviewed 2023. Phencyclidine, ur Not Detected CutOff 25 ng/mL [facility] Comment: Interpretive Data - Phencyclidine: ??Samples containing greater than 25 ng/mL phencyclidine or other cross-reacting compounds are reported as positive. ??False positive and false negative results are possible. Confirmatory testing required for definitive results. Current Interpretive Data was last reviewed 2023. Urine Creatinine 70 mg/dL [facility] Comment: Interpretive Data Urine Creatinine: < 10 mg/dL is extremely dilute = or > 10 but < 20 mg/dL is dilute = or > 20 mg/dL is normal Current Interpretive Data was last revised on 2018. Urine 10/25/2024 3:07 AM SKI MOLDER 10/25/2024 3:23 AM SKI MOLDER Narrative [facility] - 10/25/2024 3:56 AM SKI MOLDER Drug of Abuse screening is performed by immunoassay for medical purposes only. ??This is not to be used for Pain Management purposes. us Craig Huertas MD LAB URINE ORDERABLES Final R esult [facility] Department [place] [address] * (ABNORMAL) Urinalysis, microscopic only (10/25/2024 3:07 AM SKI MOLDER) WBC, ur 0-5 0 - 5 /HPF RBC, ur 0-2 0 - 2 /HPF [facility] Mucous, ur Present(A) [facility] Culture Reflex Comment Reflex conditions for urine culture (WBC >10) not met. [facility] Urine 10/25/2024 3:07 AM SKI MOLDER 10/25/2024 3:17 AM SKI MOLDER us Craig Huertas MD LAB URINE ORDERABLES Final R esult [facility] Department [place] [address] * eGFR (10/25/2024 3:02 AM SKI MOLDER) eGFR 90 >=60 mL/min/1. 73 m2 Comment: [...] last reviewed 2021. Blood 10/25/2024 3:02 AM SKI MOLDER 10/25/2024 3:23 AM SKI MOLDER us Craig Huertas MD LAB BLOOD ORDERABLES Final R esult [facility] Department [place] [address] * (ABNORMAL) Differential, auto (10/25/2024 3:02 AM SKI MOLDER) Neutrophil abs 4.4 1.5 - 6.5 K/cumm Imm gran abs 0.0 0.0 - 0.1 K/cumm [facility] Lymphocyte abs 0.7(L) 0.8 - 3.3 K/cumm [facility] Monocyte abs 0.8 0.2 - 0.8 K/cumm [facility] Eosinophil abs 0.0 0.0 - 0.5 K/cumm [facility] Basophil abs 0.0 0.0 - 0.1 K/cumm [facility] Neutrophil pct 74.6 % [facility] Comment: Interpretive Data Percent cell count reference ranges are not reported, since discordance with absolute values may lead to misinterpretation of CBC data. Current Interpretive Data was last revised on 2018. Imm gran pct 0.5 % [facility] Comment: Interpretive Data Percent cell count reference ranges are not reported, since discordance with absolute values may lead to misinterpretation of CBC data. Current Interpretive Data was last revised on 2018. Lymphocyte pct 11.6 % [facility] Comment: Interpretive Data Percent cell count reference ranges are not reported, since discordance with absolute values may lead to misinterpretation of CBC data. Current Interpretive Data was last revised on 2018. Monocyte pct 12.8 % [facility] Comment: Interpretive Data Percent cell count reference ranges are not reported, since discordance with absolute values may lead to misinterpretation of CBC data. Current Interpretive Data was last revised on 2018. Eosinophil pct 0.3 % [facility] Comment: Interpretive Data Percent cell count reference ranges are not reported, since discordance with absolute values may lead to misinterpretation of CBC data. Current Interpretive Data was last revised on 2018. Basophil pct 0.2 % [facility] Comment: Interpretive Data Percent cell count reference ranges are not reported, since discordance with absolute values may lead to misinterpretation of CBC data. Current Interpretive Data was last revised on 2018. Blood 10/25/2024 3:02 AM SKI MOLDER 10/25/2024 3:23 AM SKI MOLDER us Craig Huertas MD LAB BLOOD ORDERABLES Final R esult [facility] Department [place] [address] * CBC with auto differential (10/25/2024 3:02 AM SKI MOLDER) WBC 5.8 3.8 - 9.9 K/cumm Hgb 14.3 13.0 - 17.5 g/dL [facility] Hct 40.5 38.9 - 50.3 % [facility] Plt 178 150 - 400 K/cumm [facility] MPV 10.2 9.1 - 12.3 fL [facility] RBC 4.50 4.30 - 5.80 M/cumm [facility] MCV 90.0 81.3 - 96.4 fL [facility] MCH 31.8 27.1 - 33.3 pg [facility] MCHC 35.3 32.3 - 35.7 g/dL [facility] RDW CV 12.2 11.1 - 14.9 % [facility] RDW SD 40.4 35.7 - 48.1 fL [facility] NRBC abs 0.00 0.00 - 0.01 K/cumm [facility] Blood 10/25/2024 3:02 AM SKI MOLDER 10/25/2024 3:23 AM SKI MOLDER us Craig Huertas MD LAB BLOOD ORDERABLES Final R esult [facility] [place] [address] * Erythrocyte sedimentation rate (10/25/2024 3:02 AM SKI MOLDER) Pathologist [facility] Erythrocyte sedimentation rate 8 1 - 15 mm/hr Blood 10/25/2024 3:02 AM SKI MOLDER 10/25/2024 3:23 AM SKI MOLDER us Craig Huertas MD LAB BLOOD ORDERABLES Final R esult Performing Organization Address City/[facility]/ZIP Co de Phone Number [facility] [place] [address] * CRP (acute phase) (10/25/2024 3:02 AM SKI MOLDER) Pathologist [facility] CRP 6.1 <=10.0 mg/L Blood 10/25/2024 3:02 AM SKI MOLDER 10/25/2024 3:23 AM SKI MOLDER us Craig Huertas MD LAB BLOOD ORDERABLES Final R esult Performing Organization Address City/[facility]/ZIP Co de Phone Number [facility] [place] [address] * Lipase (10/25/2024 3:02 AM SKI MOLDER) Pathologist [facility] Lipase 12 10 - 99 Units/L Blood 10/25/2024 3:02 AM SKI MOLDER 10/25/2024 3:23 AM SKI MOLDER us Craig Huertas MD LAB BLOOD ORDERABLES [place] [address] * Basic metabolic panel (10/25/2024 3:02 AM SKI MOLDER) Pathologist [facility] Sodium 140 135 - 145 mmol/L Potassium, pl 3.5 3.3 - 4.9 mmol/L [facility] Chloride 102 97 - 110 mmol/L [facility] CO2 26 22 - 32 mmol/L [facility] Anion gap 12 2 - 15 mmol/L [facility] BUN 7 6 - 25 mg/dL [facility] Creatinine 1.12 0.80 - 1.30 mg/dL [facility] Glucose 100 70 - 199 mg/dL [facility] Comment: Interpretive Data Fasting glucose [...] 2022. Calcium 9.1 8.5 - 10.3 mg/dL [facility] Blood 10/25/2024 3:02 AM SKI MOLDER 10/25/2024 3:23 AM SKI MOLDER us Craig Huertas MD LAB BLOOD ORDERABLES Final R esult [facility] [place] [address] from Last 3 Months Care Teams Board Catcher Relationship Specialty Start Date End Date Unknown, Notinfile PCP - General 10/25/24
== END 2024-10-28 10:27 | disposition home or self-care (01) ==
PROVIDERS: Emergency Provider Family Medicine
DX: S39.92XA Unspecified injury of lower back, initial encounter (principal); M47.814 Spondylosis without myelopathy or radiculopathy, thoracic region; W18.39XA Other fall on same level, initial encounter
CPT/HCPCS: 72110; 99283